=== PATIENT | male | born 1960 | race Caucasian/White ===

== ENCOUNTER 2016-03-23 07:14 | Emergency (ER) | payer OTHER ==
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
[2016-03-23 08:25] LABS: ABSOLUTE BASOPHILS # (AUTO) 0.1 10^3/uL (0.0-0.2); ABSOLUTE EOSINOPHILS # (AUTO) 0.4 10^3/uL (0.0-0.6); ABSOLUTE LYMPHOCYTES (AUTO) 1.8 10^3/uL (0.5-4.7); ABSOLUTE MONOCYTES (AUTO) 0.8 10^3/uL (0.1-1.4); ABSOLUTE NEUT (AUTO) 5.8 10^3/uL (1.7-8.2); BASOPHILS % (AUTO) 1.2 % (0-2); HEMATOCRIT 44.5 % (37.9-51.0); HEMOGLOBIN 14.6 g/dL (13.5-17.0); HGB HCT DIFFERENCE -0.7; LYMPHOCYTES % (AUTO) 20.1 % (13-45); MEAN CORPUSCULAR HEMOGLOBIN 32.1 pg (27.0-33.4); MEAN CORPUSCULAR HGB CONC 32.8 g/dL (32.0-36.0); MEAN CORPUSCULAR VOLUME 98 fl (80-97); MONOCYTES % (AUTO) 9.6 % (3-13); RED BLOOD COUNT 4.54 10^6/uL (4.35-5.55); RED CELL DISTRIBUTION WIDTH 13.8 % (11.5-14.0); SEGMENTED NEUTROPHILS % (AUTO) 65.1 % (42-78); WHITE BLOOD COUNT 8.9 10^3/uL (4.0-10.5)
[2016-03-23 08:33] LABS: PROTHROMBIN TIME 12.2 SEC (11.4-15.4)
[2016-03-23 08:34] LABS: PARTIAL THROMBOPLASTIN TIME 30.3 SEC (23.5-35.8)
[2016-03-23 08:48] LABS: ALANINE AMINOTRANSFERASE 25 U/L (21-72); ALBUMIN 3.9 g/dL (3.5-5.0); ALKALINE PHOSPHATASE 72 U/L (38-126); ANION GAP 11 (5-19); ASPARTATE AMINO TRANSFERASE 31 U/L (17-59); BILIRUBIN,TOTAL 0.4 mg/dL (0.2-1.3); BLOOD UREA NITROGEN 16 mg/dL (7-20); CALCIUM 9.1 mg/dL (8.4-10.2); CARBON DIOXIDE 25 mmol/L (22-30); CHLORIDE 106 mmol/L (98-107); CREATININE RESULT 1.02 mg/dL (0.52-1.25); GLUCOSE 105 mg/dL (75-110); LIPASE 91.3 U/L (23-300); POTASSIUM 3.9 mmol/L (3.6-5.0)
[2016-03-23 10:34] VITALS: BP 155/88
== END 2016-03-23 10:34 | disposition home or self-care (01) ==
LOC: ER 07:14
DX: K57.31 Diverticulosis of large intestine without perforation or abscess with bleeding (principal); K62.5 Hemorrhage of anus and rectum; R11.2 Nausea with vomiting, unspecified; R10.13 Epigastric pain; R42 Dizziness and giddiness; F17.210 Nicotine dependence, cigarettes, uncomplicated; I10 Essential (primary) hypertension; K21.9 Gastro-esophageal reflux disease without esophagitis; Z90.49 Acquired absence of other specified parts of digestive tract
CPT/HCPCS: 36415; 74177; 80053; 82272; 83690; 85025; 85610; 85730; 86850; 86900; 86901; 99284

== ENCOUNTER 2017-04-21 10:30 | Emergency (ER) | payer OTHER ==
[2017-04-21 10:37] VITALS: BP 162/88
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
== END 2017-04-21 11:13 | disposition home or self-care (01) ==
LOC: ER 10:30
DX: K43.9 Ventral hernia without obstruction or gangrene (principal); I10 Essential (primary) hypertension; Z79.899 Other long term (current) drug therapy; Z87.892 Personal history of anaphylaxis; Z91.038 Other insect allergy status; J45.909 Unspecified asthma, uncomplicated
CPT/HCPCS: 99283

== ENCOUNTER 2017-11-21 11:23 | Emergency (ER) | payer OTHER ==
[2017-11-21 12:28] VITALS: BP 122/66
[2017-11-21] MEDS ORDERED: HYDROCODONE/ACETAMINOPHEN 5-325 MG (6 TAB/ER DISP) PO PRN (13:06)
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
== END 2017-11-21 13:16 | disposition home or self-care (01) ==
LOC: ER 11:23
DX: S53.402A Unspecified sprain of left elbow, initial encounter (principal); X50.0XXA Overexertion from strenuous movement or load, initial encounter; F17.200 Nicotine dependence, unspecified, uncomplicated
CPT/HCPCS: 99283

== ENCOUNTER 2018-08-08 10:13 | Emergency (ER) | payer OTHER ==
--- NOTE | 2018-08-08 10:30 | ER Document Report ---
ED Medical Screen (RME) - General Chief Complaint: Testicular Pain Stated Complaint: LOW LEFT ABDOMINAL PAIN Time Seen by Provider: 08/08/18 10:25 Mode of Arrival: Ambulatory Information source: Patient Notes: Patient presents emergency department with complaints of left lower quad abdominal pain since Tuesday. Also complains of left testicular pain from 2 days ago. Has history of diverticulitis. Denies other symptoms such as fever vomiting diarrhea. Reports urinary frequency. Dictation of this chart was performed using voice recognition software; therefore, there may be some unintended grammatical errors. I have greeted and performed a rapid initial assessment of this patient. A comprehensive ED assessment and evaluation of the patient, analysis of test results and completion of the medical decision making process will be conducted by additional ED providers. TRAVEL OUTSIDE OF THE [place] IN LAST 30 DAYS: No - Related Data Allergies/Adverse Reactions: No Known Drug Allergies Allergy (Unknown, Verified 08/08/18 10:21) wasp Allergy (Severe, Uncoded 08/08/18 10:21) Anaphylaxis Past Medical History - Social History Family history: None - Past Medical History Cardiac Medical History: Reports: Hx Hypertension Pulmonary Medical History: Reports: Hx Asthma Denies: Hx Tuberculosis Renal/ Medical History: Denies: Hx Peritoneal Dialysis GI Medical History: Reports: Hx Gastroesophageal Reflux Disease Traumatic Medical History: Reports: Hx Fractures - ankles Past Surgical History: Reports: Hx Cholecystectomy. Denies: Hx Pacemaker - Immunizations Hx Diphtheria, Pertussis, Tetanus Vaccination: Yes Physical Exam - Vital signs Vitals: Temp Pulse Resp BP Pulse Ox 97.9 F 71 18 113/64 95 08/08/18 10:23 08/08/18 10:08/08/18 10:08/08/18 10:23 08/08/18 10:23 Course - Vital Signs Vital signs: Temp Pulse Resp BP Pulse Ox 97.9 F 71 18 113/64 95 08/08/18 10:23 08/08/18 10:23 08/08/18 10:23 08/08/18 10:23 08/08/18 10:23
[2018-08-08 10:58] LABS: ABSOLUTE BASOPHILS # (AUTO) 0.1 10^3/uL (0.0-0.2); ABSOLUTE EOSINOPHILS # (AUTO) 0.3 10^3/uL (0.0-0.6); ABSOLUTE LYMPHOCYTES (AUTO) 2.2 10^3/uL (0.5-4.7); ABSOLUTE MONOCYTES (AUTO) 0.8 10^3/uL (0.1-1.4); ABSOLUTE NEUT (AUTO) 5.2 10^3/uL (1.7-8.2); BASOPHILS % (AUTO) 0.8 % (0-2); EOSINOPHILS % (AUTO) 3.1 % (0-6); HEMATOCRIT 39.7 % (37.9-51.0); LYMPHOCYTES % (AUTO) 25.7 % (13-45); MEAN CORPUSCULAR HEMOGLOBIN 33.4 pg (27.0-33.4); MEAN CORPUSCULAR HGB CONC 35.3 g/dL (32.0-36.0); MEAN CORPUSCULAR VOLUME 94 fl (80-97); MONOCYTES % (AUTO) 9.8 % (3-13); PLATELET COUNT 269 10^3/uL (150-450); RED BLOOD COUNT 4.21 10^6/uL (4.35-5.55); SEGMENTED NEUTROPHILS % (AUTO) 60.6 % (42-78); TOTAL CELLS COUNTED % (AUTO) 100 %; WHITE BLOOD COUNT 8.6 10^3/uL (4.0-10.5)
[2018-08-08 11:00] LABS: APPEARANCE,URINE CLEAR; BILIRUBIN,URINE NEGATIVE (NEGATIVE); COLOR,URINE YELLOW; GLUCOSE, URINE NEGATIVE (NEGATIVE); KETONES,URINE NEGATIVE (NEGATIVE); LEUKOCYTE ESTERASE,URINE NEGATIVE (NEGATIVE); NITRITE,URINE NEGATIVE (NEGATIVE); PROTEIN,URINE NEGATIVE (NEGATIVE); URINE SPECIFIC GRAVITY 1.016; UROBILINOGEN,URINE NEGATIVE mg/dL (<2.0)
[2018-08-08 11:18] LABS: ALANINE AMINOTRANSFERASE 19 U/L (21-72); ALBUMIN 4.1 g/dL (3.5-5.0); ALKALINE PHOSPHATASE 63 U/L (38-126); ANION GAP 10 (5-19); ASPARTATE AMINO TRANSFERASE 22 U/L (17-59); BILIRUBIN,DIRECT 0.2 mg/dL (0.0-0.4); BILIRUBIN,TOTAL 0.6 mg/dL (0.2-1.3); BLOOD UREA NITROGEN 25 mg/dL (7-20); CALCIUM 9.6 mg/dL (8.4-10.2); CARBON DIOXIDE 25 mmol/L (22-30); CHLORIDE 106 mmol/L (98-107); GLUCOSE 98 mg/dL (75-110); POTASSIUM 4.1 mmol/L (3.6-5.0); SODIUM 141.3 mmol/L (137-145); TOTAL PROTEIN 7.3 g/dL (6.3-8.2)
--- NOTE | 2018-08-08 11:51 | RADIOLOGY REPORT (SQ) ---
EXAM DESCRIPTION: U/S SCROTUM W/DOPPLER COMPLETED DATE/TIME: 08/08/2018 11:42 am REASON FOR STUDY: left testicular pain COMPARISON: None. TECHNIQUE: Static and realtime lopez scale imaging of the scrotum and testes. Selected color Doppler and spectral images recorded to document blood flow. LIMITATIONS: None. FINDINGS: RIGHT: TESTICLE: Normal size, 4 x 3.2 x 2.2 cm. Normal echotexture. Normal blood flow. No mass. EPIDIDYMIS: Normal, 10 mm. HYDROCELE OR VARICOCELE: No. HERNIA OR EXTRA-TESTICULAR MASS: No. OTHER: No other significant finding. LEFT: TESTICLE: Normal size, 4.2 x 3.4 x 2.1 cm. Normal echotexture. Normal blood flow. No mass. EPIDIDYMIS: Normal, 8 mm. HYDROCELE OR VARICOCELE: No. HERNIA OR EXTRA-TESTICULAR MASS: No. OTHER: No other significant finding. IMPRESSION: NORMAL SCROTAL ULTRASOUND. NO EVIDENCE OF TESTICULAR MASS OR TORSION. TECHNICAL DOCUMENTATION: JOB ID: [id number] [employer]- All Rights Reserved Reading location - IP/workstation name: [email or web address]
[2018-08-08] MEDS ORDERED: MORPHINE SULFATE 10 MG/ML INJ IV ONE (14:07)
[2018-08-08] MEDS ORDERED: ONDANSETRON HCL INJ/PF 4 MG/2 ML SDV IV ONE (14:07)
--- NOTE | 2018-08-08 14:39 | RADIOLOGY REPORT (SQ) ---
EXAM DESCRIPTION: CT ABD/PELVIS WITH IV ONLY COMPLETED DATE/TIME: 08/08/2018 2:30 pm REASON FOR STUDY: llq pain history of diverticulitis COMPARISON: 03/23/2016 TECHNIQUE: CT scan of the abdomen and pelvis performed using helical scanning technique with dynamic intravenous contrast injection. No oral contrast. Images reviewed with lung, soft tissue, and bone windows. Reconstructed coronal and sagittal MPR images reviewed. Delayed images for evaluation of the urinary system also acquired. All images stored on PACS. All CT scanners at this facility use dose modulation, iterative reconstruction, and/or weight based d osing when appropriate to reduce radiation dose to as low as reasonably achievable (ALARA). [facility]: Dose Right [facility]: CareDose [facility]: Dose Right [facility]: Teradose 4D [facility]: [employer] CONTRAST TYPE AND DOSE: contrast/concentration: Isovue 350.00 mg/ml; Total Contrast Delivered: 100.0 ml; Total Saline Delivered: 70.0 ml RENAL FUNCTION: GFR > 60. RADIATION DOSE: CT Rad equipment meets quality standard of care and radiation dose reduction techniq ues were employed. CTDIvol: NaN - NaN mGy. DLP: 0 mGy-cm.. LIMITATIONS: None. FINDINGS: LOWER CHEST: No significant findings. No nodules or infiltrates. LIVER: Normal size. No masses. No dilated ducts. SPLEEN: Old granulomatous disease. PANCREAS: No masses. No significant calcifications. No adjacent inflammation or peripancreatic fluid collections. Pancreatic duct not dilated. GALLBLADDER: Surgically absent. ADRENAL GLANDS: No significant masses or asymmetry. RIGHT KIDNEY AND URETER: No solid masses. No significant calcifications. No hydronephrosis or hyd roureter. LEFT KIDNEY AND URETER: No solid masses. No significant calcifications. No hydronephrosis or hydr oureter. AORTA AND VESSELS: No aneurysm. No dissection. Renal arteries, SMA, celiac without stenosis. RETROPERITONEUM: No retroperitoneal adenopathy, hemorrhage or masses. BOWEL AND PERITONEAL CAVITY: Mesenteric inflammation in the sigmoid colon. No abscess. No ascites o r free air. APPENDIX: Normal. PELVIS: No mass. No free fluid. Normal bladder. ABDOMINAL WALL: No masses. No hernias. BONES: No significant or acute findings. OTHER: No other significant finding. IMPRESSION: Sigmoid diverticulitis. TECHNICAL DOCUMENTATION: JOB ID: [id number] Quality ID # [id number]: Final reports with documentation of one or more dose reduction techniques (e.g., Au tomated exposure control, adjustment of the mA and/or kV according to patient size, use of iterative reconstruction technique) 2010 [employer]- All Rights Reserved Reading location - IP/workstation name: [email or web address]
[2018-08-08] MEDS ORDERED: METRONIDAZOLE 500 MG/NS RTU 500 MG/100 ML RTUPB IV ONE (15:08)
[2018-08-08] MEDS ORDERED: AMOXICILLIN TR/POT CLAVULANATE 500-125 MG TAB PO ONE (15:09)
[2018-08-08] MEDS ORDERED: DIPHENHYDRAMINE HCL 50 MG CAPSULE PO ONE (15:14)
--- NOTE | 2018-08-08 15:24 | ER Document Report ---
ED General - General Chief Complaint: Testicular Pain Stated Complaint: LOW LEFT ABDOMINAL PAIN Time Seen by Provider: 08/08/18 10:25 Mode of Arrival: Ambulatory Information source: Patient Notes: 58-year-old male with a history of hypertension, asthma, diverticulitis presents with left lower quadrant abdominal pain that started 5 days prior to arrival. Patient describes the pain as sharp, intermittent and worse with certain movements. He did try an old pain patch without relief. Patient denies any fever, chills, nausea, vomiting, diarrhea. His last bout of diverticulitis was approximately 1 year ago. Patient reports a colonoscopy 2 years ago. TRAVEL OUTSIDE OF THE [place] IN LAST 30 DAYS: No - HPI Onset: Last week Onset/Duration: Gradual, Persistent Quality of pain: Dull, Sharp Severity: Mild Pain Level: 1 Associated symptoms: denies: Chest pain, Diarrhea, Fever, Headache, Nausea, Vomiting, Weakness Exacerbated by: Movement Relieved by: Denies Similar symptoms previously: Yes Recently seen / treated by doctor: No - Related Data Allergies/Adverse Reactions: No Known Drug Allergies Allergy (Unknown, Verified 08/08/18 10:21) wasp Allergy (Severe, Uncoded 08/08/18 10:21) Anaphylaxis Past Medical History - General Information source: Patient - Social History Smoking Status: Current Every Day Smoker Cigarette use (# per day): Yes - 20 Smoking Education Provided: Yes - Smoking cessation counseling was provided for 4 minutes at the bedside Frequency of alcohol use: Occasional Drug Abuse: None Lives with: Family Family History: DM Patient has suicidal ideation: No Patient has homicidal ideation: No - Past Medical History Cardiac Medical History: Reports: Hx Hypertension Pulmonary Medical History: Reports: Hx Asthma Denies: Hx Tuberculosis Renal/ Medical History: Denies: Hx Peritoneal Dialysis GI Medical History: Reports: Hx Gastroesophageal Reflux Disease Traumatic Medical History: Reports: Hx Fractures - ankles Past Surgical History: Reports: Hx Cholecystectomy. Denies: Hx Pacemaker - Immunizations Hx Diphtheria, Pertussis, Tetanus Vaccination: Yes Review of Systems - Review of Systems Notes: REVIEW OF SYSTEMS: CONSTITUTIONAL : Denies fever, chills, or sweats. Denies recent illness. Denies weight loss, recent hospitalizations. EENT: Denies visual changes, eye pain. Denies sore throat, oral lesions, difficulty swallowing. CARDIOVASCULAR: Denies chest pain. Denies palpitations. Denies lower extremity edema. RESPIRATORY: Denies cough. Denies shortness of breath, wheezing. GASTROINTESTINAL: Denies abdominal distention. Denies nausea, vomiting, or diarrhea. Denies blood in vomitus, stools, or per rectum. Denies black, tarry stools. Denies constipation. GENITOURINARY: Denies difficulty urinating, painful urination, frequency, blood in urine, testicular pain or penile discharge. MUSCULOSKELETAL: Denies back or neck pain or stiffness. Denies joint pain or swelling. SKIN: Denies rash, lesions or sores. HEMATOLOGIC : Denies easy bruising or bleeding. LYMPHATIC: Denies swollen glands. NEUROLOGICAL: Denies confusion or altered mental status. Denies loss of consciousness. Denies dizziness or lightheadedness. Denies headache. Denies weakness or paralysis. Denies problems difficulty with ambulation, slurred speech. Denies sensory loss, numbness, or tingling. Denies seizures. PSYCHIATRIC: Denies anxiety or stress. Denies depression, suicidal ideation, or Physical Exam - Vital signs Vitals: Temp Pulse Resp BP Pulse Ox 97.9 F 71 18 113/64 95 08/08/18 10:23 08/08/18 10:23 08/08/18 10:23 08/08/18 10:23 08/08/18 10:23 - Notes Notes: PHYSICAL EXAMINATION: GENERAL: Well-appearing, well-nourished and in no acute distress. HEAD: Atraumatic, normocephalic. EYES: Pupils equal round and reactive to light, extraocular movements intact, sclera anicteric, conjunctiva are normal. ENT: Nares patent, oropharynx clear without exudates. Moist mucous membranes. NECK: Normal range of motion, supple without lymphadenopathy LUNGS: Breath sounds clear to auscultation bilaterally and equal. No wheezes rales or rhonchi. HEART: Regular rate and rhythm without murmurs ABDOMEN: Soft, tenderness with palpation to the left lower quadrant. No guarding, no rebound. No masses appreciated. Musculoskeletal: Normal range of motion, no pitting or edema. No cyanosis. NEUROLOGICAL: Cranial nerves grossly intact. Normal speech, normal gait. Normal sensory, motor exams PSYCH: Normal mood, normal affect. SKIN: Warm, Dry, normal turgor, no rashes or lesions noted. Course - Re-evaluation Re-evalutation: 08/08/18 15:24 Laboratory 08/08/18 08/08/18 08/08/18 10:35 10:35 10:35 WBC 8.6 RBC 4.21 L Hgb 14.0 Hct 39.7 MCV 94 MCH 33.4 MCHC 35.3 RDW 13.0 Plt Count 269 Seg Neutrophils % 60.6 Lymphocytes % 25.7 Monocytes % 9.8 Eosinophils % 3.1 Basophils % 0.8 Absolute Neutrophils 5.2 Absolute Lymphocytes 2.2 Absolute Monocytes 0.8 Absolute Eosinophils 0.3 Absolute Basophils 0.1 Sodium 141.3 Potassium 4.1 Chloride 106 Carbon Dioxide 25 Anion Gap 10 BUN 25 H Creatinine 1.14 Est GFR ( Amer) > 60 Est GFR (Non-Af Amer) > 60 Glucose 98 Calcium 9.6 Total Bilirubin 0.6 Direct Bilirubin 0.2 Neonat Total Bilirubin Not Reportable Neonat Direct Bilirubin Not Reportable Neonat Indirect Bili Not Reportable AST 22 ALT 19 L Alkaline Phosphatase 63 Total Protein 7.3 Albumin 4.1 Urine Color YELLOW Urine Appearance CLEAR Urine pH 5.0 Ur Specific [place] 1.016 Urine Protein NEGATIVE Urine Glucose (UA) NEGATIVE Urine Ketones NEGATIVE Urine Blood SMALL H Urine Nitrite NEGATIVE Urine Bilirubin NEGATIVE Urine Urobilinogen NEGATIVE Ur Leukocyte Esterase NEGATIVE Urine WBC (Auto) 2 Urine RBC (Auto) 1 U Hyaline Cast (Auto) 1 Urine Mucus (Auto) RARE Urine Ascorbic Acid NEGATIVE Scrotum Ultrasound 08/08/18 10:29 IMPRESSION: NORMAL SCROTAL ULTRASOUND. NO EVIDENCE OF TESTICULAR MASS OR TORSION. Abdomen/Pelvis CT 08/08/18 14:07 IMPRESSION: Sigmoid diverticulitis. Temp Pulse Resp BP Pulse Ox 97.9 F 71 18 113/64 95 08/08/18 10:23 08/08/18 10:23 08/08/18 10:23 08/08/18 10:23 08/08/18 10:23 08/08/18 15:24 58-year-old male presents with left lower quadrant abdominal pain that started 5 days prior to arrival. Vitals were reviewed and within normal limits. Patient does not appear toxic or dehydrated. He is in no acute distress. CBC is without leukocytosis or anemia. CMP shows no electrolyte abnormalities. Urinalysis is within normal limits. Scrotal ultrasound was obtained due to the patient's complaint of left testicular pain this showed no evidence of testicular mass or torsion. CT of the abdomen pelvis with IV contrast was obtained and showed sigmoid diverticulitis without associated abscess. Patient was given Flagyl, Augmentin. During patient's ED course he started to complain of left lower lip swelling. Patient does have minor swelling of the left lower lip without airway involvement, tongue swelling, shortness of breath, rash. Patient does take lisinopril for his hypertension and has been on this for several years. Benadryl was given and improvement of the lip swelling was noted. Patient will be discharged home with Flagyl, Augmentin, Zofran. 08/08/18 16:28 Patient reevaluated prior to discharge. Lip swelling still present but improved. This could be secondary to his lisinopril which the patient was advised to stop. He was advised to contact his primary care physician regarding possible alternative medication for his high blood pressure. Patient reports feeling great improvement in his abdominal pain. Patient was evaluated and treated as appropriate for the patient's presenting symptoms and complaint, with consideration of any critical or life threatening conditions that may be associated with their obtained history and exam as noted above. All results were discussed with patient. Patient provided the opportunity to ask questions, and express concerns. Patient was educated on treatments based on their presumed diagnosis as noted above. At this time we will discharge the patient with return precautions and follow-up recommendations. Verbal discharge instructions given a the bedside. Medication warnings reviewed. Patient is in agreement with this plan and has verbalized understanding of return precautions. After careful consideration I feel that that patient can be safely discharged from the emergency department, they were advised to followup with a primary care physician in 2-3 days. Dictation on this chart was performed using voice recognition software and may result in unintended grammatical, spelling, syntax or errors. - Vital Signs Vital signs: Temp Pulse Resp BP Pulse Ox 97.9 F 71 18 113/64 95 08/08/18 10:23 08/08/18 10:23 08/08/18 10:23 08/08/18 10:23 08/08/18 10:23 - Laboratory Result Diagrams: 08/08/18 10:35 08/08/18 10:35 Laboratory results interpreted by me: 08/08/18 08/08/18 08/08/18 10:35 10:35 10:35 RBC 4.21 L BUN 25 H ALT 19 L Urine Blood SMALL H - Diagnostic Test Radiology reviewed: Image reviewed, Reports reviewed Discharge - Discharge Clinical Impression: Lower lip swelling, Sigmoid diverticulitis Condition: Good Disposition: HOME, SELF-CARE Instructions: Acute Allergic Reaction to Drugs ([facility]), Diverticulitis ([facility]) Additional Instructions: You were seen today for focal pain in your left lower quadrant. Your labs, exam, and imaging suggest a diagnosis of diverticulitis. This is an inflammation of a part of your colon. You are being started on antibiotics to treat this infection and inflammation. Please take all of them as directed and complete them even if your symptoms resolve. Please follow-up with your primary care physician within the next 48 hours. Return to the emergency department immediately if you develop worsening pain, persistent vomiting, began having bloody stools, develop a fever of greater than 101F, or have any other symptoms that are concerning to you. Please discontinue your lisinopril as this could be the cause of your lip swelling. Please contact your primary care physician and let them know about the lip swelling. Prescriptions: Metronidazole [Flagyl 500 mg Tablet] 500 mg PO BID #14 tablet Moxifloxacin HCl [Avelox] 400 mg PO DAILY #7 tablet Ondansetron [Zofran Odt 4 mg Tablet] 1 - 2 tab PO Q4H PRN #15 tab.rapdis PRN Reason: For Nausea/Vomiting Oxycodone HCl/Acetaminophen [Percocet 5-325 mg Tablet] 1 - 2 tab PO Q6H PRN #10 tablet PRN Reason:
[2018-08-08] MEDS ORDERED: METHYLPREDNISOLONE INJ 125 MG/2 ML SDV IV ONE (15:32)
[2018-08-08] MEDS ORDERED: FAMOTIDINE INJ/PF 20 MG/2 ML SDV IV ONE (15:33)
[2018-08-08 16:34] VITALS: BP 145/75
== END 2018-08-08 16:33 | disposition home or self-care (01) ==
LOC: ER 10:13
DX: K57.32 Diverticulitis of large intestine without perforation or abscess without bleeding (principal); R22.0 Localized swelling, mass and lump, head; R10.32 Left lower quadrant pain; F17.210 Nicotine dependence, cigarettes, uncomplicated; I10 Essential (primary) hypertension; Z90.49 Acquired absence of other specified parts of digestive tract
CPT/HCPCS: 99406; 99284; 96375; 96365; 36415; 85025; 80053; 81001; 76870; 93976; 74177; J2930; J3490; J2270; J2405; S0028

== ENCOUNTER → 2019-03-09 | Outpatient (CLI) | payer OTHER ==
--- NOTE | 2019-03-09 14:38 | RADIOLOGY REPORT (SQ) ---
EXAM DESCRIPTION: CHEST PA/LATERAL COMPLETED DATE/TIME: 03/09/2019 2:14 pm REASON FOR STUDY: PRE-OP COMPARISON: 11/13/10. EXAM PARAMETERS: NUMBER OF VIEWS: two views TECHNIQUE: Digital Frontal and Lateral radiographic views of the chest acquired. RADIATION DOSE: NA LIMITATIONS: none FINDINGS: LUNGS AND PLEURA: No opacities, masses or pneumothorax. No pleural effusion. MEDIASTINUM AND HILAR STRUCTURES: No masses or contour abnormalities. HEART AND VASCULAR STRUCTURES: Heart normal size. No evidence for failure. BONES: No acute findings. HARDWARE: None in the chest. OTHER: No other significant finding. IMPRESSION: NO SIGNIFICANT RADIOGRAPHIC FINDING IN THE CHEST. TECHNICAL DOCUMENTATION: JOB ID: [id number] [employer]- All Rights Reserved Reading location - IP/workstation name: [email or web address]
[2019-03-09 15:02] LABS: ABSOLUTE BASOPHILS # (AUTO) 0.1 10^3/uL (0.0-0.2); ABSOLUTE EOSINOPHILS # (AUTO) 0.4 10^3/uL (0.0-0.6); ABSOLUTE MONOCYTES (AUTO) 0.8 10^3/uL (0.1-1.4); ABSOLUTE NEUT (AUTO) 3.9 10^3/uL (1.7-8.2); BASOPHILS % (AUTO) 1.3 % (0-2); EOSINOPHILS % (AUTO) 5.6 % (0-6); HEMOGLOBIN 14.5 g/dL (13.5-17.0); LYMPHOCYTES % (AUTO) 28.1 % (13-45); MEAN CORPUSCULAR HEMOGLOBIN 31.7 pg (27.0-33.4); MEAN CORPUSCULAR HGB CONC 35.2 g/dL (32.0-36.0); MEAN CORPUSCULAR VOLUME 90 fl (80-97); MONOCYTES % (AUTO) 10.7 % (3-13); PLATELET COUNT 295 10^3/uL (150-450); RED BLOOD COUNT 4.55 10^6/uL (4.35-5.55); RED CELL DISTRIBUTION WIDTH 12.9 % (11.5-14.0); SEGMENTED NEUTROPHILS % (AUTO) 54.3 % (42-78); TOTAL CELLS COUNTED % (AUTO) 100 %; WHITE BLOOD COUNT 7.2 10^3/uL (4.0-10.5)
[2019-03-09 15:06] LABS: APPEARANCE,URINE CLEAR; BILIRUBIN,URINE NEGATIVE (NEGATIVE); COLOR,URINE YELLOW; GLUCOSE, URINE NEGATIVE (NEGATIVE); KETONES,URINE NEGATIVE (NEGATIVE); LEUKOCYTE ESTERASE,URINE NEGATIVE (NEGATIVE); NITRITE,URINE NEGATIVE (NEGATIVE); PROTEIN,URINE NEGATIVE (NEGATIVE); URINE SPECIFIC GRAVITY 1.019; UROBILINOGEN,URINE NEGATIVE mg/dL (<2.0)
[2019-03-09 15:21] LABS: ANION GAP 13 (5-19); BLOOD UREA NITROGEN 18 mg/dL (7-20); CALCIUM 9.8 mg/dL (8.4-10.2); CARBON DIOXIDE 26 mmol/L (22-30); CHLORIDE 100 mmol/L (98-107); GLUCOSE 100 mg/dL (75-110)
--- NOTE | 2019-03-09 19:44 | EKG REPORT ---
SEVERITY:- ABNORMAL ECG - SINUS RHYTHM FIRST DEGREE AV BLOCK INCOMPLETE RBBB AND LAFB LEFT VENTRICULAR HYPERTROPHY ANTERIOR Q WAVES, POSSIBLY DUE TO LVH : Confirmed by: Margarito Cortes MD 09-Mar-2019 19:43:39
== END ==
LOC: OD 13:47
PROVIDERS: ATTEND Orthopaedic Surgery
DX: Z01.810 Encounter for preprocedural cardiovascular examination (principal); Z01.811 Encounter for preprocedural respiratory examination; Z01.812 Encounter for preprocedural laboratory examination; M17.11 Unilateral primary osteoarthritis, right knee; I10 Essential (primary) hypertension
CPT/HCPCS: 36415; 71046; 80048; 81001; 85025; 93005; 93010

== ENCOUNTER 2019-03-28 05:18 | Day surgery (SDC) | payer OTHER ==
[~2019-03-28 05:18] MED LIST: BUPIVACAINE INJ/PF LIPOSOME/PF 266 MG/20 ML SDV INJ PRN; CEFAZOLIN INJ 1 GM VIAL IV PRN; IBUPROFEN 800 MG in NORMAL SALINE 250 ML IV PRN; LACTATED RINGERS 1000 ML IV PRN; LIDOCAINE 0.5% INJ-PF (5 MG/ML) 50 ML SDV SUBCUT PRN; OXYCODONE HCL SR 10 MG TABLET PO PRN; PANTOPRAZOLE SODIUM 20 MG TABLET.DR PO PRN; VANCOMYCIN HCL 1,000 MG in DEXTROSE 5%-WATER 250 ML IV PRN
[2019-03-28] MEDS ORDERED: CEFAZOLIN 1 GM/D5W RTU 1 GM/50 ML RTUPB IV ONE (06:29)
[2019-03-28] MEDS ORDERED: OXYCODONE HCL SR 10 MG TABLET PO ONE (06:58)
[2019-03-28] MEDS ORDERED: PANTOPRAZOLE SODIUM 20 MG TABLET.DR PO ONE (06:59)
[2019-03-28] MEDS ORDERED: ALBUTEROL SULFATE 0.083% NEB 2.5 MG/3 ML AMPUL NEB ONE (07:00)
[2019-03-28] MEDS ORDERED: FENTANYL CITRATE INJ/PF 100 MCG/2 ML AMPUL ONE (07:13)
[2019-03-28] MEDS ORDERED: KETAMINE HCL INJ 500 MG/10 ML VIAL ONE (07:13)
[2019-03-28] MEDS ORDERED: EPHEDRINE SULFATE INJ 50 MG/1 ML AMPULE ONE (07:13)
[2019-03-28] MEDS ORDERED: MIDAZOLAM 2 MG/2 ML INJ ONE (07:13)
[2019-03-28] MEDS ORDERED: TRANEXAMIC ACID INJ/PF 1,000 MG/10 ML SDV ONE (07:14)
[2019-03-28] MEDS ORDERED: PROPOFOL INJ 200 MG/20 ML VIAL IV ONE (07:14)
[2019-03-28] MEDS ORDERED: BUPIVACAINE INJ/PF LIPOSOME/PF 266 MG/20 ML SDV ONE (07:15)
[2019-03-28] MEDS ORDERED: OXYCODONE-ACETAMINOPHEN 5-325 MG TABLET PO PRN ×2 (07:51)
[2019-03-28] MEDS ORDERED: PROMETHAZINE HCL INJ 25 MG/1 ML VIAL IV PRN ×2 (07:51)
[2019-03-28] MEDS ORDERED: FENTANYL CITRATE INJ/PF 100 MCG/2 ML AMPUL IV PRN ×3 (07:51)
[2019-03-28] MEDS ORDERED: MEPERIDINE HCL/PF INJ 25 MG/1 ML DISP.SYRIN IV PRN (07:51)
[2019-03-28] MEDS ORDERED: DIPHENHYDRAMINE HCL 50 MG/ML VIAL IV PRN ×2 (07:51→08:35)
[2019-03-28] MEDS ORDERED: MAG HYDROX/AL HYDROX/SIMETH SUSP 30 ML UDCUP PO PRN (08:35)
[2019-03-28] MEDS ORDERED: ONDANSETRON HCL INJ/PF 4 MG/2 ML SDV IV PRN (08:35)
[2019-03-28] MEDS ORDERED: ACETAMINOPHEN 325 MG TABLET PO PRN (08:35)
[2019-03-28] MEDS ORDERED: OXYCODONE HCL IR 5 MG TABLET PO PRN (08:35)
[2019-03-28] MEDS ORDERED: RINGERS SOLUTION,LACTATED 1,000 ML IV PRN (08:35)
[2019-03-28] MEDS ORDERED: ZOLPIDEM TARTRATE 5 MG TABLET PO PRN (08:35)
[2019-03-28] MEDS ORDERED: ONDANSETRON 4 MG TAB.RAPDIS PO PRN (08:35)
--- NOTE | 2019-03-28 08:39 | Operative Report ---
Operative Report DATE OF SURGERY: 03/28/19 PREOPERATIVE DIAGNOSIS: Right knee arthritis OPERATION: Right knee arthroplasty SURGEON: LUIS ALBERTO WHITESIDE ANESTHESIA: Spinal TISSUE REMOVED OR ALTERED: Bone to pathology ESTIMATED BLOOD LOSS: 50 PROCEDURE: Implants used: Femur: [place] triathlon size 6 uncemented CR femur Tibia: 6 uncemented tibia Tibial liner: 9 mm CS insert Patella: 38 mm uncemented patella Procedure with the patient supine on the operating table the right the limb is prepped and draped in a sterile fashion. The limb was elevated for exsanguination and the tourniquet inflated to 280 torr. A standard midline median parapatellar approach the knee is taken. Access is gained to the femoral canal through the intercondylar notch. Intramedullary alignment instrumentation used to resect 10 mm of distal femur in 5 of valgus. Sizing guide indicated a size 6 femur. Appropriate cutting jig is then used to fashion anterior posterior and chamfer cuts. A trial reduction femurs performed and this is judged to be adequate. Attention was next turned to the tibia. Using an extra medullary alignment system 9 millimeters was resected off the lateral tibial plateau. This is sized to a size 6 tibia. A trial reduction was now performed with a 6 femur and a 6 tibia using a 9 millimeters spacer. It is full extension and central patellofemoral tracking. The articular surface the patella was next resected using an oscillating saw. All trial implants were removed. Polymethylmethacrylate is mixed and used to cement the above implants in place. On adequate curing the cement excess cement was removed the tourniquet was deflated hemostasis obtained the wound is then closed in layers using interrupted Vicryl followed by christal. A sterile compressive dressing was applied and the patient returned to recovery room in satisfactory condition.
[2019-03-28] MEDS ORDERED: PROMETHAZINE HCL INJ 25 MG/1 ML VIAL ONE (09:24)
--- NOTE | 2019-03-28 09:28 | RADIOLOGY REPORT (SQ) ---
EXAM DESCRIPTION: KNEE RIGHT 2 VIEWS COMPLETED DATE/TIME: 03/28/2019 9:20 am REASON FOR STUDY: Post OP -Long Cassette in PACU M17.11 UNILATERAL PRIMARY OSTEOARTHRITIS, RIGHT KN EE COMPARISON: None. NUMBER OF VIEWS: Two view(s). TECHNIQUE: Digital radiographic images of the right knee post-procedure. LIMITATIONS: None. FINDINGS: BONES: No worrisome or unexpected findings post-procedure. DEVICE: Total knee arthroplasty SOFT TISSUES: No worrisome findings. Expected postoperative soft tissue changes. IMPRESSION: SATISFACTORY POSTOPERATIVE RIGHT KNEE. TECHNICAL DOCUMENTATION: JOB ID: [id number] [employer]- All Rights Reserved Reading location - IP/workstation name: [email or web address]
[2019-03-28] MEDS ORDERED: LEVOTHYROXINE SODIUM 0.025 MG TABLET PO SCH (10:00)
[2019-03-28] MEDS ORDERED: (PENDING PHARMACY ID) (Omeprazole [Prilosec 20 Mg Capsule] 20 MG) PO SCH (10:00)
[2019-03-28] MEDS ORDERED: TRANEXAMIC ACID INJ/PF 1,000 MG/10 ML SDV IV ONE (10:00)
[2019-03-28] MEDS ORDERED: (PENDING PHARMACY ID) (Bupropion Hcl [Bupropion Xl] 150 MG) PO SCH (10:00)
[2019-03-28] MEDS: ASPIRIN 81 MG TABLET, ENT COATED PO SCH (10:55)
[2019-03-28] MEDS: PRENATAL VITAMIN W DHA CAPSULE PO SCH (10:55)
[2019-03-28] MEDS: SENNOSIDES/DOCUSATE 8.6-50 MG 1 EACH TABLET PO SCH ×2 (10:56→17:16)
[2019-03-28] MEDS: PREGABALIN 75 MG CAPSULE PO SCH ×2 (10:56→17:16)
[2019-03-28] MEDS: HYDROCHLOROTHIAZIDE 25 MG TABLET PO SCH (10:56)
[2019-03-28] MEDS: BUPROPION HCL 75 MG TABLET PO SCH ×2 (13:54→21:10)
[2019-03-28] MEDS ORDERED: DEXAMETHASONE SOD PHOSPHATE INJ 4 MG/1 ML VIAL ONE (14:40)
[2019-03-28] MEDS ORDERED: ONDANSETRON HCL INJ/PF 4 MG/2 ML SDV ONE (14:40)
[2019-03-28] MEDS: IBUPROFEN 800 MG in NORMAL SALINE 250 ML IV SCH (17:16)
[2019-03-28] MEDS ORDERED: VANCOMYCIN HCL 1,000 MG in DEXTROSE 5%-WATER 250 ML IV ONE (20:35)
[2019-03-28] MEDS: OXYCODONE HCL SR 10 MG TABLET PO SCH (21:09)
[2019-03-29] MEDS: IBUPROFEN 800 MG in NORMAL SALINE 250 ML IV SCH ×2 (01:55→10:32)
[2019-03-29] MEDS ORDERED: LEVOTHYROXINE SODIUM 0.025 MG TABLET PO SCH (06:00)
[2019-03-29] MEDS ORDERED: PANTOPRAZOLE SODIUM 20 MG TABLET.DR PO SCH (06:00)
[2019-03-29] MEDS ORDERED: LEVOTHYROXINE SODIUM 0.1 MG TABLET PO SCH (06:00)
--- NOTE | 2019-03-29 06:58 | PDOC DISCHARGE SUMMARY ---
Impression - Admit/DC Date/PCP Admission Date/Primary Care Provider: 03/28/19 05:18 [facility] Discharge Date: 03/29/19 - Discharge Diagnosis (1) Arthritis of right knee Is this a current diagnosis for this admission?: Yes - Additional Information Resuscitation Status: Full Code Discharge Diet: Regular Discharge Activity: Balance Activity w/Rest, No tub bath Referrals: LUIS ALBERTO CUNNINGHAM MD [ACTIVE STAFF] - 04/10/19 1:30 pm Home Medications: Omeprazole [Prilosec] 20 mg PO DAILYP PRN 06/29/11 Bupropion HCl [Bupropion Xl] 150 mg PO DAILY 03/15/19 Cetirizine HCl [Zyrtec] 10 mg PO DAILY 03/15/19 Hydrochlorothiazide [Hydrodiuril 25 mg Tablet] 25 mg PO DAILY 03/15/19 Levothyroxine Sodium 0.125 mg PO Q6AM 03/28/19 History of Present Illiness History of Present Illness: KELY MARTINEZ is a 59 year old male 59-year-old white male with progressive right knee pain and functional disability second osteoarthritis. Patient is admitted for elective right knee arthroplasty. Hospital Course Hospital Course: Patient is admitted through the operating where he undergoes an uncomplicated right knee arthroplasty. Is returned to floor in satisfactory condition.. He ambulates 150 feet with physical therapy on the day of surgery. He is comfortable overnight and is alert oriented appropriate the following morning. Physical Exam Vital Signs: Temp Pulse Resp BP Pulse Ox 36.4 C 66 18 148/68 H 96 03/29/19 00:00 03/29/19 00:00 03/29/19 00:00 03/29/19 00:00 03/29/19 00:00 Intake & Output 03/27/19 03/28/19 03/29/19 06:59 06:59 06:59 Intake Total 0 5412 Output Total 3010 Balance 0 2402 Weight 106.59 kg 106.59 kg General appearance: PRESENT: no acute distress Head exam: PRESENT: normocephalic Respiratory exam: PRESENT: unlabored Cardiovascular exam: PRESENT: RRR Pulses: PRESENT: +1 pedal pulses bilateral GI/Abdominal exam: PRESENT: soft Rectal exam: PRESENT: deferred Musculoskeletal exam: PRESENT: other - Right lower extremity compressive dressing removed. The small amount of drainage at the upper end of the OpSite. This is subsequently changed. Wound is well approximated christal. There is no erythema or ongoing drainage. Minimal pedal edema. Distal neurovascular examination is intact. Neurological exam: PRESENT: alert, awake, oriented to person, oriented to place, oriented to time, oriented to situation. ABSENT: motor sensory deficit Psychiatric exam: PRESENT: appropriate affect, normal mood. ABSENT: homicidal ideation, suicidal ideation Skin exam: PRESENT: dry, intact, warm. ABSENT: cyanosis, rash Results Laboratory Results: Potassium 4.3 mmol/L (3.6-5.0) 03/28/19 06:18 Impressions: Knee X-Ray 03/28/19 08:37 IMPRESSION: SATISFACTORY POSTOPERATIVE RIGHT KNEE. Plan Plan of Treatment: Patient be discharged home on a weightbearing as tolerated basis with DME and home health services. Follow-up with Dr. Cunningham and [facility] for surgery in 2 weeks for staple removal. Stroke Is this a Stroke Patient?: No Stroke Pt being discharged on Anti-thrombolytic therapy?: Yes Acute Heart Failure - Is this a Heart Failure Patient?: No
[2019-03-29 07:01] LABS: HEMATOCRIT 40.3 % (37.9-51.0); HEMOGLOBIN 13.9 g/dL (13.5-17.0); MEAN CORPUSCULAR HEMOGLOBIN 31.3 pg (27.0-33.4); MEAN CORPUSCULAR HGB CONC 34.4 g/dL (32.0-36.0); MEAN CORPUSCULAR VOLUME 91 fl (80-97); PLATELET COUNT 277 10^3/uL (150-450); RED BLOOD COUNT 4.43 10^6/uL (4.35-5.55); WHITE BLOOD COUNT 14.1 10^3/uL (4.0-10.5)
[2019-03-29 07:27] LABS: ANION GAP 10 (5-19); BLOOD UREA NITROGEN 29 mg/dL (7-20); CALCIUM 9.4 mg/dL (8.4-10.2); CARBON DIOXIDE 28 mmol/L (22-30); CHLORIDE 102 mmol/L (98-107); GLUCOSE 98 mg/dL (75-110)
[2019-03-29] MEDS: PREGABALIN 75 MG CAPSULE PO SCH (10:32)
[2019-03-29] MEDS: HYDROCHLOROTHIAZIDE 25 MG TABLET PO SCH (10:33)
[2019-03-29] MEDS: SENNOSIDES/DOCUSATE 8.6-50 MG 1 EACH TABLET PO SCH (10:33)
[2019-03-29] MEDS: OXYCODONE HCL SR 10 MG TABLET PO SCH (10:33)
[2019-03-29] MEDS: ASPIRIN 81 MG TABLET, ENT COATED PO SCH (10:34)
[2019-03-29] MEDS: PRENATAL VITAMIN W DHA CAPSULE PO SCH (10:34)
[2019-03-29] MEDS: BUPROPION HCL 75 MG TABLET PO SCH (10:34)
[2019-03-29 12:37] VITALS: BP 166/72
== END 2019-03-29 13:55 | disposition home or self-care (01) ==
LOC: UNDOADMIN 05:18 → OROUT 05:18 → INOR 05:18 → EDSTATUS 07:30 → INOR 10:03 → 4S 10:03 → OROUT 03-29 13:55 → UNDODISIN 03-29 13:55
PROVIDERS: ATTEND Orthopaedic Surgery
DX: M17.11 Unilateral primary osteoarthritis, right knee (principal)
CPT/HCPCS: 36415 ×2; 84132; 85027; 80048; 88305 ×2; 88311; 73560; 94799; 97110 ×2; 97116 ×2; 97163; 97535 ×2; 97166; 01402; 27447; C1776 ×2; J2250; J0690; J1100; J3490 ×7; J3010; J2550; J2405; J7060; J7050; J2704; J3370; C9290; J1741

== ENCOUNTER 2019-04-22 00:07 | Inpatient (IN) | payer OTHER ==
[2019-04-22] MEDS ORDERED: OXYCODONE HCL IR 5 MG TABLET ONE (01:07)
[2019-04-22] MEDS: OXYCODONE HCL IR 5 MG TABLET PO PRN ×3 (08:31→23:59)
[2019-04-22] MEDS ORDERED: (PENDING PHARMACY ID) (Omeprazole [Prilosec 20 Mg Capsule] 20 MG) PO PRN (10:29)
[2019-04-22] MEDS ORDERED: BUPROPION HCL 75 MG TABLET PO ONE (11:30)
--- NOTE | 2019-04-22 11:31 | PDOC H&P ---
History of Present Illness Admission Date/PCP: 04/22/19 00:07 [facility] History of Present Illness: KELY MARTINEZ is a 59 year old male Patient is a 59-year-old white male status post right knee arthroplasty on March 28, 2019 who did well until approximately 48 hours ago when he had experienced increasing erythema warmth and discomfort about his right knee. He is chronicled this with a series of photographs on his phone. He denies any fever sweats chills or other systemic manifestations of infection. The patient presented initially to the [place] emergency room for reasons that are not clear to me and was transferred to [facility] under my care. Past Medical History Cardiac Medical History: Reports: Myocardial Infarction, Hypertension Denies: Atrial Fibrillation, Congestive Heart Failure, Coronary Artery Disease, Hyperlipidema, Peripheral Vascular Disease, Pulmonary Embolism, Heart Murmur Pulmonary Medical History: Reports: Asthma Denies: Bronchitis, Chronic Obstructive Pulmonary Disease (COPD), Pneumonia, Respiratory Failure, Sleep Apnea, Tuberculosis Neurological Medical History: Denies: Seizures Endocrine Medical History: Reports: Hyperthyroidism Denies: Hypothyroidism Malignancy Medical History: Denies: Lung Cancer GI Medical History: Reports: Gastroesophageal Reflux Disease Denies: Crohn's Disease, Hiatal Hernia Musculoskeltal Medical History: Reports: Arthritis Denies: Fibromyalgia Psychiatric Medical History: Denies: Bipolar Disorder, Depression, Post Traumatic Stress Disorder Hematology: Denies: Anemia Past Surgical History Past Surgical History: Reports: Cholecystectomy, Orthopedic Surgery - Right knee arthroplasty March 28, 2019 Denies: Appendectomy, Colostomy, Coronary Artery Bypass Graft, Gastric Bypass Surgery, Herniorrhaphy, Pacemaker, Tonsillectomy Social History Information Source: Patient, [facility]el[facility] Office, [facility] Records Smoking Status: Current Some Day Smoker Electronic Cigarette use?: No Number of Years Smokin Frequency of Alcohol Use: Rare Hx Recreational Drug Use: No Drugs: None Hx Prescription Drug Abuse: No Family History Family History: Reviewed & Not Pertinent, DM Parental Family History Reviewed: No Children Family History Reviewed: No Sibling(s) Family History Reviewed.: No Medication/Allergy Home Medications: Omeprazole [Prilosec] 20 mg PO DAILYP PRN 06/29/11 Bupropion HCl [Bupropion Xl] 150 mg PO DAILY 03/15/19 Cetirizine HCl [Zyrtec] 10 mg PO DAILY 03/15/19 Hydrochlorothiazide [Hydrodiuril 25 mg Tablet] 25 mg PO DAILY 03/15/19 Levothyroxine Sodium 0.125 mg PO Q6AM 03/28/19 Allergies/Adverse Reactions: No Known Drug Allergies Allergy (Unknown, Verified 03/28/19 05:33) wasp Allergy (Severe, Uncoded 03/28/19 05:30) Anaphylaxis Review of Systems All systems: as per [facility] Physical Exam Vital Signs: Temp Pulse Resp BP Pulse Ox 36.3 C 74 18 138/70 H 97 04/22/19 10:56 04/22/19 10:56 04/22/19 10:56 04/22/19 10:56 04/22/19 10:56 Intake & Output 04/21/19 04/22/19 04/23/19 06:59 06:59 06:59 Intake Total 400 Balance 400 Physical Exam: Moderately built middle-aged white male sitting up on the side of the bed. Patient is alert, oriented, and appropriate. Patient has some concern which is also appropriate. General appearance: PRESENT: mild distress, well-developed, well-nourished Head exam: PRESENT: normocephalic Respiratory exam: PRESENT: unlabored Cardiovascular exam: PRESENT: RRR Pulses: PRESENT: +1 pedal pulses bilateral Vascular exam: PRESENT: normal capillary refill GI/Abdominal exam: PRESENT: soft Rectal exam: PRESENT: deferred Extremities exam: PRESENT: other - Right knee incision is well approximated and completely re-epithelialized at this point. There is elevation, induration, and erythema. There is no active drainage. There is tenderness along incision primarily inferior to the patella. Neurological exam: PRESENT: alert, awake, oriented to person, oriented to place, oriented to time, oriented to situation. ABSENT: motor sensory deficit Psychiatric exam: PRESENT: appropriate affect, normal mood. ABSENT: homicidal ideation, suicidal ideation Skin exam: PRESENT: dry, intact, warm. ABSENT: cyanosis, rash Results Status: Imported from PACS Assessment & Plan - Diagnosis (1) Surgical site infection Is this a current diagnosis for this admission?: Yes Plan: Suspect the patient has a surgical site infection approximately 3-1/2 weeks status post right knee arthroplasty. An aspiration is performed in the room today with scant serosanguineous aspirate that is sent to microbiology for culture and sensitivity. The patient started empirically on Rocephin and vancomycin. Laboratory values are drawn today. Anticipate I&D tomorrow - Time Time Spent: 50 to 70 Minutes Anticipated discharge: Home with Homehealth Within: Other
[2019-04-22] MEDS: LEVOTHYROXINE SODIUM 0.025 MG TABLET PO SCH (11:53)
[2019-04-22] MEDS: PANTOPRAZOLE SODIUM 20 MG TABLET.DR PO SCH (11:54)
[2019-04-22] MEDS: LEVOTHYROXINE SODIUM 0.1 MG TABLET PO SCH (11:54)
[2019-04-22] MEDS ORDERED: HYDROCHLOROTHIAZIDE 25 MG TABLET PO ONE (12:00)
[2019-04-22] MEDS ORDERED: CETIRIZINE 10 MG TABLET PO ONE (12:00)
[2019-04-22 12:37] LABS: INTERNATIONAL RATION (INR) 1.11; PROTHROMBIN TIME 14.3 SEC (11.4-15.4)
[2019-04-22 12:38] LABS: PARTIAL THROMBOPLASTIN TIME 37.7 SEC (23.5-35.8)
[2019-04-22 12:43] LABS: ABSOLUTE BASOPHILS # (AUTO) 0.1 10^3/uL (0.0-0.2); ABSOLUTE EOSINOPHILS # (AUTO) 0.4 10^3/uL (0.0-0.6); ABSOLUTE LYMPHOCYTES (AUTO) 1.8 10^3/uL (0.5-4.7); ABSOLUTE MONOCYTES (AUTO) 1.2 10^3/uL (0.1-1.4); ABSOLUTE NEUT (AUTO) 7.2 10^3/uL (1.7-8.2); BASOPHILS % (AUTO) 1.2 % (0-2); EOSINOPHILS % (AUTO) 3.4 % (0-6); HEMATOCRIT 39.1 % (37.9-51.0); HEMOGLOBIN 13.8 g/dL (13.5-17.0); LYMPHOCYTES % (AUTO) 17.1 % (13-45); MEAN CORPUSCULAR HGB CONC 35.2 g/dL (32.0-36.0); MEAN CORPUSCULAR VOLUME 91 fl (80-97); MONOCYTES % (AUTO) 10.9 % (3-13); PLATELET COUNT 495 10^3/uL (150-450); RED BLOOD COUNT 4.31 10^6/uL (4.35-5.55); RED CELL DISTRIBUTION WIDTH 12.4 % (11.5-14.0); SEGMENTED NEUTROPHILS % (AUTO) 67.4 % (42-78); TOTAL CELLS COUNTED % (AUTO) 100 %; WHITE BLOOD COUNT 10.6 10^3/uL (4.0-10.5)
[2019-04-22 12:51] LABS: ANION GAP 11 (5-19); BLOOD UREA NITROGEN 27 mg/dL (7-20); CALCIUM 9.6 mg/dL (8.4-10.2); CARBON DIOXIDE 27 mmol/L (22-30); CHLORIDE 97 mmol/L (98-107); GLUCOSE 82 mg/dL (75-110); POTASSIUM 4.4 mmol/L (3.6-5.0)
[2019-04-22 13:10] LABS: C-REACTIVE PROTEIN 247.2 mg/L (<10.0)
[2019-04-22 13:25] LABS: ERYTHROCYTE SEDIMENTATION RATE 98 mm/hr (0-20)
[2019-04-22] MEDS: CEFTRIAXONE 2 GM/D5W RTU 2 GM/50 ML RTUPB IV SCH (13:51)
[2019-04-22] MEDS: RINGERS SOLUTION,LACTATED 1,000 ML IV PRN ×2 (14:04→22:59)
[2019-04-22] MEDS: BUPROPION HCL 75 MG TABLET PO SCH (17:36)
[2019-04-22] MEDS: VANCOMYCIN HCL 1,500 MG in DEXTROSE 5%-WATER 250 ML IV SCH (17:37)
[2019-04-23] MEDS: VANCOMYCIN HCL 1,500 MG in DEXTROSE 5%-WATER 250 ML IV SCH ×2 (05:00→18:10)
[2019-04-23] MEDS: LEVOTHYROXINE SODIUM 0.1 MG TABLET PO SCH (05:02)
[2019-04-23] MEDS: LEVOTHYROXINE SODIUM 0.025 MG TABLET PO SCH (05:02)
[2019-04-23] MEDS ORDERED: LEVOTHYROXINE SODIUM 0.125 MG PO SCH (06:00)
[2019-04-23] MEDS: HYDROCHLOROTHIAZIDE 25 MG TABLET PO SCH (09:04)
[2019-04-23] MEDS: CETIRIZINE 10 MG TABLET PO SCH (09:04)
[2019-04-23] MEDS: PANTOPRAZOLE SODIUM 20 MG TABLET.DR PO SCH (09:04)
[2019-04-23] MEDS: BUPROPION HCL 75 MG TABLET PO SCH ×2 (09:04→18:10)
[2019-04-23] MEDS ORDERED: (PENDING PHARMACY ID) (Cetirizine Hcl [Zyrtec] 10 MG) PO SCH (10:00)
[2019-04-23] MEDS ORDERED: VANCOMYCIN HCL INJ 1000 MG VIAL IV SCH (10:00)
[2019-04-23] MEDS ORDERED: (PENDING PHARMACY ID) (Bupropion Hcl [Bupropion Xl] 150 MG) PO SCH (10:00)
[2019-04-23] MEDS ORDERED: CEFTRIAXONE INJ 1000 MG VIAL IV SCH (10:00)
[2019-04-23] MEDS: CEFTRIAXONE 2 GM/D5W RTU 2 GM/50 ML RTUPB IV SCH (12:23)
[2019-04-23] MEDS: RINGERS SOLUTION,LACTATED 1,000 ML IV PRN ×2 (12:23→22:06)
[2019-04-23] MEDS: OXYCODONE HCL IR 5 MG TABLET PO PRN (12:25)
[2019-04-23] MEDS ORDERED: DEXAMETHASONE SOD PHOSPHATE INJ 4 MG/1 ML VIAL ONE (16:59)
[2019-04-23] MEDS ORDERED: MIDAZOLAM 2 MG/2 ML INJ ONE ×2 (16:59→17:07)
[2019-04-23] MEDS ORDERED: FENTANYL CITRATE INJ/PF 100 MCG/2 ML AMPUL ONE (16:59)
[2019-04-23] MEDS ORDERED: PROPOFOL 0 MG/0 ML INFUS..BTL IV ONE (17:00)
[2019-04-23] MEDS ORDERED: ONDANSETRON HCL INJ/PF 4 MG/2 ML SDV ONE (17:00)
[2019-04-23] MEDS ORDERED: PROPOFOL INJ 200 MG/20 ML VIAL IV ONE (17:02)
[2019-04-23] MEDS ORDERED: POLYMYXIN B SULFATE INJ 500000 UNIT VIAL ONE (17:13)
[2019-04-23] MEDS ORDERED: BACITRACIN INJ 50,000 UNIT VIAL ONE (17:14)
[2019-04-23] MEDS ORDERED: BUPIVACAINE INJ/PF LIPOSOME/PF 266 MG/20 ML SDV ONE (17:14)
[2019-04-23] MEDS ORDERED: MORPHINE SULFATE 10 MG/ML INJ IV PRN (17:56)
[2019-04-23] MEDS ORDERED: PROMETHAZINE HCL INJ 25 MG/1 ML VIAL IV PRN ×2 (17:56)
[2019-04-23] MEDS ORDERED: ONDANSETRON HCL INJ/PF 4 MG/2 ML SDV IV PRN (17:56)
[2019-04-23] MEDS ORDERED: MEPERIDINE HCL/PF INJ 25 MG/1 ML DISP.SYRIN IV PRN (17:56)
[2019-04-23] MEDS ORDERED: FENTANYL CITRATE INJ/PF 100 MCG/2 ML AMPUL IV PRN ×3 (17:56)
[2019-04-23] MEDS ORDERED: DIPHENHYDRAMINE HCL 50 MG/ML VIAL IV PRN ×2 (17:56→18:27)
[2019-04-23] MEDS ORDERED: VANCOMYCIN HCL INJ 1000 MG VIAL ONE (18:00)
[2019-04-23] MEDS ORDERED: RINGERS SOLUTION,LACTATED 1,000 ML IV PRN (18:27)
[2019-04-23] MEDS ORDERED: MAG HYDROX/AL HYDROX/SIMETH SUSP 30 ML UDCUP PO PRN (18:27)
[2019-04-23] MEDS ORDERED: ONDANSETRON 4 MG TAB.RAPDIS PO PRN (18:27)
--- NOTE | 2019-04-23 18:27 | Operative Report ---
Operative Report DATE OF SURGERY: 04/23/19 PREOPERATIVE DIAGNOSIS: Surgical site infection right knee arthroplasty OPERATION: Irrigation debridement exchange of polyethylene component SURGEON: LUIS ALBERTO WHITESIDE ANESTHESIA: Spinal TISSUE REMOVED OR ALTERED: Cultures to microbiology. Implant to CSS ESTIMATED BLOOD LOSS: 100 INTRAOPERATIVE FINDINGS: Both superficial and deep to the retinaculum there is a modest amount of clearish yellow fluid with flocculent material within it PROCEDURE: With the patient on the operating table the right lower extremities prepped and draped in a sterile fashion. Limb is elevated for exsanguination tourniquet inflated 280 torr. A standard midline vision is made and upon penetrating the dermis there is a large amount of clear yellowish fluid with flocculent material in it. This is captured and sent for microbiology. The superficial area is debrided meticulously and irrigated with 3 L of normal saline tanning bacitracin. The deep layers and entered by a median parapatellar retinacular incision and similar fluid is found within the knee joint proper. The existing polyethylene spacer is removed for access to the largest amount of joint surface area. The synovium is debrided meticulously first by scraping and then with a rondure. The the wound is then irrigated with pulse lavage using normal saline containing Betadine. A new 9 mm size 6 CS insert for a [place] triathlon system is impacted into the tibial tray. The wound is then closed in layers was interrupted PDS. A sterile compressive dressings applied and the patient is returned to the PACU in satisfactory condition.
[2019-04-23] MEDS ORDERED: TRANEXAMIC ACID INJ/PF 1,000 MG/10 ML SDV ONE (19:36)
[2019-04-23] MEDS ORDERED: TRANEXAMIC ACID INJ/PF 1,000 MG/10 ML SDV IV ONE (20:00)
[2019-04-23] MEDS: OXYCODONE HCL SR 10 MG TABLET PO SCH (21:13)
[2019-04-23] MEDS: IBUPROFEN 800 MG in NORMAL SALINE 250 ML IV SCH (22:06)
[2019-04-24] MEDS: OXYCODONE HCL IR 5 MG TABLET PO PRN (03:28)
[2019-04-24] MEDS: PANTOPRAZOLE SODIUM 40 MG TABLET.DR PO SCH (05:12)
[2019-04-24] MEDS: IBUPROFEN 800 MG in NORMAL SALINE 250 ML IV SCH ×3 (05:12→21:24)
[2019-04-24] MEDS: LEVOTHYROXINE SODIUM 0.025 MG TABLET PO SCH (05:12)
[2019-04-24] MEDS: LEVOTHYROXINE SODIUM 0.1 MG TABLET PO SCH (05:12)
[2019-04-24] MEDS: VANCOMYCIN HCL 1,500 MG in DEXTROSE 5%-WATER 250 ML IV SCH (05:38)
[2019-04-24 06:08] LABS: HEMATOCRIT 33.7 % (37.9-51.0); HEMOGLOBIN 11.9 g/dL (13.5-17.0); MEAN CORPUSCULAR HEMOGLOBIN 31.7 pg (27.0-33.4); MEAN CORPUSCULAR HGB CONC 35.2 g/dL (32.0-36.0); MEAN CORPUSCULAR VOLUME 90 fl (80-97); PLATELET COUNT 444 10^3/uL (150-450); RED BLOOD COUNT 3.74 10^6/uL (4.35-5.55); RED CELL DISTRIBUTION WIDTH 12.4 % (11.5-14.0)
[2019-04-24] MEDS ORDERED: VANCOMYCIN HCL 1,000 MG in DEXTROSE 5%-WATER 250 ML IV ONE (06:27)
[2019-04-24 06:41] LABS: VANCOMYCIN,TROUGH 6.4 ug/mL (5.0-20.0)
[2019-04-24 07:13] LABS: ANION GAP 7 (5-19); BLOOD UREA NITROGEN 15 mg/dL (7-20); CARBON DIOXIDE 27 mmol/L (22-30); CHLORIDE 99 mmol/L (98-107); GLUCOSE 96 mg/dL (75-110); POTASSIUM 4.5 mmol/L (3.6-5.0)
--- NOTE | 2019-04-24 07:24 | PDOC PROGRESS REPORT ---
Subjective Progress Note for:: 04/24/19 Reason For Visit: RIGHT KNEE PERIPROSTHETIC SURGICAL SITE INFECTION 59-year-old white male postop day 1 status post I&D of a right periprosthetic knee infection Physical Exam Vital Signs: Temp Pulse Resp BP Pulse Ox 37.1 C 82 16 152/64 H 98 04/24/19 01:00 04/24/19 01:00 04/24/19 01:00 04/24/19 01:00 04/24/19 01:00 Intake & Output 04/23/19 04/24/19 04/25/19 06:59 06:59 06:59 Intake Total 3378 2410 Output Total 40 Balance 3378 2370 Weight 108.454 kg 107.2 kg General appearance: PRESENT: mild distress Respiratory exam: PRESENT: unlabored Cardiovascular exam: PRESENT: RRR GI/Abdominal exam: PRESENT: soft Rectal exam: PRESENT: deferred Musculoskeletal exam: PRESENT: other - Right knee dressing clean dry and intact Neurological exam: PRESENT: alert, awake, oriented to person, oriented to place, oriented to time, oriented to situation. ABSENT: motor sensory deficit Psychiatric exam: PRESENT: appropriate affect, normal mood. ABSENT: homicidal ideation, suicidal ideation Skin exam: PRESENT: dry, intact, warm. ABSENT: cyanosis, rash Results Laboratory Results: 04/24/19 05:40 04/24/19 05:40 04/24/19 04/24/19 04/24/19 05:40 05:40 05:40 WBC 8.0 RBC 3.74 L Hgb 11.9 L Hct 33.7 L MCV 90 MCH 31.7 MCHC 35.2 RDW 12.4 Plt Count 444 Sodium 133.2 L Potassium 4.5 Chloride 99 Carbon Dioxide 27 Anion Gap 7 BUN 15 Creatinine 0.85 0.89 Est GFR ( Amer) > 60 > 60 Glucose 96 Calcium 9.0 Status: Imported from PACS Assessment & Plan - Diagnosis (1) Surgical site infection Is this a current diagnosis for this admission?: Yes Plan: Gram stain and culture data pending. Patient on empiric vancomycin and Rocephin. Will mobilize with physical therapy in the interim. - Time Time Spent with patient: 15-24 minutes Anticipated discharge: Home with Homehealth Within: Other
[2019-04-24] MEDS: PRENATAL VITAMIN W DHA CAPSULE PO SCH (09:04)
[2019-04-24] MEDS: CETIRIZINE 10 MG TABLET PO SCH (09:05)
[2019-04-24] MEDS: PANTOPRAZOLE SODIUM 20 MG TABLET.DR PO SCH (09:05)
[2019-04-24] MEDS: OXYCODONE HCL SR 10 MG TABLET PO SCH ×2 (09:05→21:23)
[2019-04-24] MEDS: SENNOSIDES/DOCUSATE 8.6-50 MG 1 EACH TABLET PO SCH ×2 (09:05→17:09)
[2019-04-24] MEDS: BUPROPION HCL 75 MG TABLET PO SCH ×2 (09:05→17:09)
[2019-04-24] MEDS: ASPIRIN 81 MG TABLET, ENT COATED PO SCH (09:05)
[2019-04-24] MEDS: HYDROCHLOROTHIAZIDE 25 MG TABLET PO SCH (09:05)
[2019-04-24] MEDS: CEFTRIAXONE 2 GM/D5W RTU 2 GM/50 ML RTUPB IV SCH (11:14)
[2019-04-24] MEDS: VANCOMYCIN HCL 1,000 MG in DEXTROSE 5%-WATER 250 ML IV SCH ×2 (13:34→21:23)
[2019-04-25] MEDS: IBUPROFEN 800 MG in NORMAL SALINE 250 ML IV SCH ×2 (05:17→13:00)
[2019-04-25] MEDS: PANTOPRAZOLE SODIUM 40 MG TABLET.DR PO SCH (05:17)
[2019-04-25] MEDS: LEVOTHYROXINE SODIUM 0.025 MG TABLET PO SCH (05:18)
[2019-04-25] MEDS: LEVOTHYROXINE SODIUM 0.1 MG TABLET PO SCH (05:18)
[2019-04-25 06:11] LABS: HEMATOCRIT 32.8 % (37.9-51.0); HEMOGLOBIN 11.4 g/dL (13.5-17.0); MEAN CORPUSCULAR HEMOGLOBIN 31.6 pg (27.0-33.4); MEAN CORPUSCULAR HGB CONC 34.8 g/dL (32.0-36.0); MEAN CORPUSCULAR VOLUME 91 fl (80-97); PLATELET COUNT 426 10^3/uL (150-450); RED CELL DISTRIBUTION WIDTH 12.5 % (11.5-14.0); WHITE BLOOD COUNT 7.2 10^3/uL (4.0-10.5)
--- NOTE | 2019-04-25 06:32 | PDOC PROGRESS REPORT ---
Subjective Progress Note for:: 04/25/19 Reason For Visit: RIGHT KNEE PERIPROSTHETIC SURGICAL SITE INFECTION 59-year-old white male now postop day 2 status post right knee I&D for periprosthetic infection. Patient made excellent progress with physical therapy yesterday. Having limited issues with pain at this point. Empiric antibiotics continue. Physical Exam Vital Signs: Temp Pulse Resp BP Pulse Ox 36.3 C 65 18 134/59 H 98 04/24/19 23:36 04/24/19 23:36 04/24/19 23:36 04/24/19 23:36 04/24/19 23:36 Intake & Output 04/23/19 04/24/19 04/25/19 06:59 06:59 06:59 Intake Total 3378 2410 3950 Output Total 40 300 Balance 3378 2370 3650 Weight 108.454 kg 107.2 kg 107.2 kg General appearance: PRESENT: no acute distress, mild distress Head exam: PRESENT: normocephalic Respiratory exam: PRESENT: unlabored Cardiovascular exam: PRESENT: RRR Pulses: PRESENT: +1 pedal pulses bilateral Vascular exam: PRESENT: normal capillary refill GI/Abdominal exam: PRESENT: soft Rectal exam: PRESENT: deferred Extremities exam: PRESENT: other - Right lower extremity dressing is taken down today. Wound is well approximated with sutures. There is some induration about the sutures but there is minimal erythema and no drainage. Neurological exam: PRESENT: alert, awake, oriented to person, oriented to place, oriented to time, oriented to situation. ABSENT: motor sensory deficit Psychiatric exam: PRESENT: appropriate affect, normal mood. ABSENT: homicidal ideation, suicidal ideation Skin exam: PRESENT: dry, intact, warm. ABSENT: cyanosis, rash Results Laboratory Results: 04/25/19 05:53 04/24/19 04/24/19 04/25/19 05:40 05:40 05:53 WBC 7.2 RBC 3.60 L Hgb 11.4 L Hct 32.8 L MCV 91 MCH 31.6 MCHC 34.8 RDW 12.5 Plt Count 426 Sodium 133.2 L Potassium 4.5 Chloride 99 Carbon Dioxide 27 Anion Gap 7 BUN 15 Creatinine 0.85 0.89 Est GFR ( Amer) > 60 > 60 Glucose 96 Calcium 9.0 04/22/19 11:16 Knee Fluid - Joint Gram Stain - Final 04/22/19 11:16 Knee Fluid - Joint Body Fluid Culture - Final No Aerobic Organisms Propionibacterium Species Status: Imported from PACS Assessment & Plan - Diagnosis (1) Surgical site infection Is this a current diagnosis for this admission?: Yes Plan: Awaiting culture results to tailor antibiotic therapy. - Time Time Spent with patient: 15-24 minutes Anticipated discharge: Home with Homehealth Within: Other
[2019-04-25 06:38] LABS: VANCOMYCIN,TROUGH 14.2 ug/mL (5.0-20.0)
[2019-04-25] MEDS: VANCOMYCIN HCL 1,000 MG in DEXTROSE 5%-WATER 250 ML IV SCH ×3 (06:42→21:55)
[2019-04-25] MEDS: PANTOPRAZOLE SODIUM 20 MG TABLET.DR PO SCH (08:11)
[2019-04-25] MEDS: OXYCODONE HCL IR 5 MG TABLET PO PRN (08:11)
[2019-04-25] MEDS: OXYCODONE HCL SR 10 MG TABLET PO SCH (09:48)
[2019-04-25] MEDS: HYDROCHLOROTHIAZIDE 25 MG TABLET PO SCH (09:50)
[2019-04-25] MEDS: CETIRIZINE 10 MG TABLET PO SCH (09:51)
[2019-04-25] MEDS: SENNOSIDES/DOCUSATE 8.6-50 MG 1 EACH TABLET PO SCH ×2 (09:51→17:08)
[2019-04-25] MEDS: ASPIRIN 81 MG TABLET, ENT COATED PO SCH (09:51)
[2019-04-25] MEDS: PRENATAL VITAMIN W DHA CAPSULE PO SCH (09:51)
[2019-04-25] MEDS: BUPROPION HCL 75 MG TABLET PO SCH ×2 (09:51→17:08)
[2019-04-25] MEDS: CEFTRIAXONE 2 GM/D5W RTU 2 GM/50 ML RTUPB IV SCH (12:00)
--- NOTE | 2019-04-25 15:55 | RADIOLOGY REPORT (SQ) ---
EXAM DESCRIPTION: PICC INSERTION; FLUORO/CV PLACEMENT; U/S GUIDE FOR VASCULAR ACCESS COMPLETED DATE/TIME: 04/25/2019 2:48 pm REASON FOR STUDY: CORRECTION ANTIBIOTICS; CORRECTION IV ABX; IV ACCESS COMPARISON: None. FLUOROSCOPY TIME: 0.11 seconds 2 images saved to PACS. TECHNIQUE: Fluoroscopic and ultrasound guided PICC placement. LIMITATIONS: None. PROCEDURE: After written consent and assessment were obtained, the patient was brought into the fluo roscopy room and placed supine on the table. Ultrasound evaluation of potential access sites were per formed. After successfully identifying a patent left basilic vein, the left arm was prepped and drape d in a sterile fashion along with the ultrasound probe. The entry site was anesthetized with 1% lidoc shirley. A 21 gauge 7 cm needle was advanced through the skin and into the basilic vein under live ultra sound guidance. An ultrasound image was saved to PACS confirming access site. A .018 guide wire was then inserted through the needle and into the venous system. The needle was then removed and an 11 b lade scalpel was used to make a 1cm skin incision. A 5 fr peel-away sheath was advanced over the wir e and into the venous system. A measurement was then made using the existing wire and live fluoroscop ic guidance. The wire was then removed and trimmed. The PICC was advanced through the peel-away sheat h and into the venous system. The peel-away sheath was removed and the catheter was adhered to the pa tients arm with a stat lock. The catheter was then aspirated and flushed and a sterile bandage was pl aced over the access site. A fluoroscopic spot image was saved to PACS confirming the catheter tip w ithin the superior vena cava. IMPRESSION: SUCCESSFUL PLACEMENT OF A 5 FR DUAL LUMEN 43 CM PICC IN THE LEFT BASILIC VEIN. COMMENT: Patient medication list reviewed: Yes- Quality ID# [id number]:Eligible professional attests to doc umenting in the medical record they obtained, updated, or reviewed the patient's current medications. . Quality ID 145: Final reports for procedures using fluoroscopy that document radiation exposure zack krystal, or exposure time and number of fluorographic images (if radiation exposure indices are not avail able) Quality ID #76: The patient was prepped and draped using maximum sterile barrier technique including cap, mask, sterile gown, sterile gloves, a large sterile sheet, hand hygiene, and 2% Chlorhexidine fo r cutaneous antisepsis. When ultrasound is used, sterile ultrasound techniques are followed requiring sterile gel and sterile probes. TECHNICAL DOCUMENTATION: JOB ID: [id number] 2010 [employer]- All Rights Reserved rev-07/22 Reading location - IP/workstation name: [email or web address]
--- NOTE | 2019-04-25 15:55 | RADIOLOGY REPORT (SQ) ---
EXAM DESCRIPTION: PICC INSERTION; FLUORO/CV PLACEMENT; U/S GUIDE FOR VASCULAR ACCESS COMPLETED DATE/TIME: 04/25/2019 2:48 pm REASON FOR STUDY: M[facility] ANTIBIOTICS; MCC IV ABX; IV ACCESS COMPARISON: None. FLUOROSCOPY TIME: 0.11 seconds 2 images saved to PACS. TECHNIQUE: Fluoroscopic and ultrasound guided PICC placement. LIMITATIONS: None. PROCEDURE: After written consent and assessment were obtained, the patient was brought into the fluo roscopy room and placed supine on the table. Ultrasound evaluation of potential access sites were per formed. After successfully identifying a patent left basilic vein, the left arm was prepped and drape d in a sterile fashion along with the ultrasound probe. The entry site was anesthetized with 1% lidoc shirley. A 21 gauge 7 cm needle was advanced through the skin and into the basilic vein under live ultra sound guidance. An ultrasound image was saved to PACS confirming access site. A .018 guide wire was then inserted through the needle and into the venous system. The needle was then removed and an 11 b lade scalpel was used to make a 1cm skin incision. A 5 fr peel-away sheath was advanced over the wir e and into the venous system. A measurement was then made using the existing wire and live fluoroscop ic guidance. The wire was then removed and trimmed. The PICC was advanced through the peel-away sheat h and into the venous system. The peel-away sheath was removed and the catheter was adhered to the pa tients arm with a stat lock. The catheter was then aspirated and flushed and a sterile bandage was pl aced over the access site. A fluoroscopic spot image was saved to PACS confirming the catheter tip w ithin the superior vena cava. IMPRESSION: SUCCESSFUL PLACEMENT OF A 5 FR DUAL LUMEN 43 CM PICC IN THE LEFT BASILIC VEIN. COMMENT: Patient medication list reviewed: Yes- Quality ID# [id number]:Eligible professional attests to doc umenting in the medical record they obtained, updated, or reviewed the patient's current medications. . Quality ID 145: Final reports for procedures using fluoroscopy that document radiation exposure zack krystal, or exposure time and number of fluorographic images (if radiation exposure indices are not avail able) Quality ID #76: The patient was prepped and draped using maximum sterile barrier technique including cap, mask, sterile gown, sterile gloves, a large sterile sheet, hand hygiene, and 2% Chlorhexidine fo r cutaneous antisepsis. When ultrasound is used, sterile ultrasound techniques are followed requiring sterile gel and sterile probes. TECHNICAL DOCUMENTATION: JOB ID: [id number] 2010 [employer]- All Rights Reserved rev-07/22 Reading location - IP/workstation name: [email or web address]
--- NOTE | 2019-04-25 15:55 | RADIOLOGY REPORT (SQ) ---
EXAM DESCRIPTION: PICC INSERTION; FLUORO/CV PLACEMENT; U/S GUIDE FOR VASCULAR ACCESS COMPLETED DATE/TIME: 04/25/2019 2:48 pm REASON FOR STUDY: GROUP HOME ANTIBIOTICS; GROUP HOME IV ABX; IV ACCESS COMPARISON: None. FLUOROSCOPY TIME: 0.11 seconds 2 images saved to PACS. TECHNIQUE: Fluoroscopic and ultrasound guided PICC placement. LIMITATIONS: None. PROCEDURE: After written consent and assessment were obtained, the patient was brought into the fluo roscopy room and placed supine on the table. Ultrasound evaluation of potential access sites were per formed. After successfully identifying a patent left basilic vein, the left arm was prepped and drape d in a sterile fashion along with the ultrasound probe. The entry site was anesthetized with 1% lidoc shirley. A 21 gauge 7 cm needle was advanced through the skin and into the basilic vein under live ultra sound guidance. An ultrasound image was saved to PACS confirming access site. A .018 guide wire was then inserted through the needle and into the venous system. The needle was then removed and an 11 b lade scalpel was used to make a 1cm skin incision. A 5 fr peel-away sheath was advanced over the wir e and into the venous system. A measurement was then made using the existing wire and live fluoroscop ic guidance. The wire was then removed and trimmed. The PICC was advanced through the peel-away sheat h and into the venous system. The peel-away sheath was removed and the catheter was adhered to the pa tients arm with a stat lock. The catheter was then aspirated and flushed and a sterile bandage was pl aced over the access site. A fluoroscopic spot image was saved to PACS confirming the catheter tip w ithin the superior vena cava. IMPRESSION: SUCCESSFUL PLACEMENT OF A 5 FR DUAL LUMEN 43 CM PICC IN THE LEFT BASILIC VEIN. COMMENT: Patient medication list reviewed: Yes- Quality ID# 130:Eligible professional attests to doc umenting in the medical record they obtained, updated, or reviewed the patient's current medications. . Quality ID 145: Final reports for procedures using fluoroscopy that document radiation exposure zack krystal, or exposure time and number of fluorographic images (if radiation exposure indices are not avail able) Quality ID #76: The patient was prepped and draped using maximum sterile barrier technique including cap, mask, sterile gown, sterile gloves, a large sterile sheet, hand hygiene, and 2% Chlorhexidine fo r cutaneous antisepsis. When ultrasound is used, sterile ultrasound techniques are followed requiring sterile gel and sterile probes. TECHNICAL DOCUMENTATION: JOB ID: [id number] 2010 [employer]- All Rights Reserved rev-07/22 Reading location - IP/workstation name: [email or web address]
[2019-04-25] MEDS: NORMAL SALINE 10 ML SDV (SCHEDULED) IV SCH (21:56)
[2019-04-26] MEDS: LEVOTHYROXINE SODIUM 0.025 MG TABLET PO SCH (06:17)
[2019-04-26] MEDS: PANTOPRAZOLE SODIUM 40 MG TABLET.DR PO SCH (06:17)
[2019-04-26] MEDS: OXYCODONE HCL IR 5 MG TABLET PO PRN ×3 (06:18→23:03)
[2019-04-26] MEDS: VANCOMYCIN HCL 1,000 MG in DEXTROSE 5%-WATER 250 ML IV SCH ×3 (06:18→21:19)
[2019-04-26] MEDS: LEVOTHYROXINE SODIUM 0.1 MG TABLET PO SCH (06:18)
[2019-04-26 06:53] LABS: HEMATOCRIT 33.6 % (37.9-51.0); HEMOGLOBIN 11.7 g/dL (13.5-17.0); MEAN CORPUSCULAR HEMOGLOBIN 31.6 pg (27.0-33.4); MEAN CORPUSCULAR HGB CONC 34.7 g/dL (32.0-36.0); MEAN CORPUSCULAR VOLUME 91 fl (80-97); PLATELET COUNT 453 10^3/uL (150-450); RED CELL DISTRIBUTION WIDTH 12.5 % (11.5-14.0); WHITE BLOOD COUNT 7.8 10^3/uL (4.0-10.5)
--- NOTE | 2019-04-26 07:05 | PDOC DISCHARGE SUMMARY ---
Impression - Admit/DC Date/PCP Admission Date/Primary Care Provider: 04/22/19 [facility] Discharge Date: 04/26/19 - Discharge Diagnosis (1) Surgical site infection Is this a current diagnosis for this admission?: Yes - Additional Information Resuscitation Status: Full Code Discharge Diet: Regular Discharge Activity: Activity As Tolerated, No tub bath Referrals: LUIS ALBERTO WHITESIDE MD [ACTIVE STAFF] - 05/03/19 1:00 pm Home Medications: Omeprazole [Prilosec] 20 mg PO DAILYP PRN 06/29/11 Bupropion HCl [Bupropion Xl] 150 mg PO DAILY 03/15/19 Cetirizine HCl [Zyrtec] 10 mg PO DAILY 03/15/19 Hydrochlorothiazide [Hydrodiuril 25 mg Tablet] 25 mg PO DAILY 03/15/19 Levothyroxine Sodium 0.125 mg PO Q6AM 03/28/19 History of Present Illiness History of Present Illness: Patient is a 59-year-old white male approximate 1 month status post right knee arthroplasty presented with increased erythema swelling and pain about the right knee. Patient is admitted for management of a suspected surgical site infection. Hospital Course Hospital Course: Patient was taken to the operating room and underwent an I&D of the knee. He was returned to floor in satisfactory she made excellent progress ambulating with physical therapy. Intraoperative cultures now growing gram-positive cocci with no further identification or antibiotic sensitivity available as of yet. He is started on empiric vancomycin and Rocephin. Physical Exam Vital Signs: Temp Pulse Resp BP Pulse Ox 36.5 C 76 18 152/55 H 99 04/26/19 00:00 04/26/19 00:00 04/26/19 00:00 04/26/19 00:00 04/26/19 00:00 Intake & Output 04/25/19 04/26/19 04/27/19 06:59 06:59 06:59 Intake Total 4200 2700 Output Total 300 Balance 3900 2700 Weight 107.2 kg 107.5 kg General appearance: PRESENT: well-developed, well-nourished Head exam: PRESENT: normocephalic Respiratory exam: PRESENT: unlabored Cardiovascular exam: PRESENT: RRR Pulses: PRESENT: +1 pedal pulses bilateral GI/Abdominal exam: PRESENT: soft Rectal exam: PRESENT: deferred Musculoskeletal exam: PRESENT: other - Right knee dressing with an OpSite remains clean dry and intact. There is small amount of erythema and induration about the knee itself. There is minimal pedal edema. Distal neurovascular examination is intact. Neurological exam: PRESENT: alert, awake, oriented to person, oriented to place, oriented to time, oriented to situation. ABSENT: motor sensory deficit Skin exam: PRESENT: dry, intact, warm. ABSENT: cyanosis, rash Results Laboratory Results: WBC 7.8 10^3/uL (4.0-10.5) 04/26/19 06:30 RBC 3.70 10^6/uL (4.35-5.55) L 04/26/19 06:30 Hgb 11.7 g/dL (13.5-17.0) L 04/26/19 06:30 Hct 33.6 % (37.9-51.0) L 04/26/19 06:30 MCV 91 fl (80-97) 04/26/19 06:30 MCH 31.6 pg (27.0-33.4) 04/26/19 06:30 MCHC 34.7 g/dL (32.0-36.0) 04/26/19 06:30 RDW 12.5 % (11.5-14.0) 04/26/19 06:30 Plt Count 453 10^3/uL (150-450) H 04/26/19 06:30 Lymph % (Auto) 17.1 % (13-45) 04/22/19 12:10 [place] % (Auto) 10.9 % (3-13) 04/22/19 12:10 Eos % (Auto) 3.4 % (0-6) 04/22/19 12:10 Baso % (Auto) 1.2 % (0-2) 04/22/19 12:10 Absolute Neuts (auto) 7.2 10^3/uL (1.7-8.2) 04/22/19 12:10 Absolute Lymphs (auto) 1.8 10^3/uL (0.5-4.7) 04/22/19 12:10 Absolute Monos (auto) 1.2 10^3/uL (0.1-1.4) 04/22/19 12:10 Absolute Eos (auto) 0.4 10^3/uL (0.0-0.6) 04/22/19 12:10 Absolute Basos (auto) 0.1 10^3/uL (0.0-0.2) 04/22/19 12:10 Seg Neutrophils % 67.4 % (42-78) 04/22/19 12:10 ESR 98 mm/hr (0-20) H 04/22/19 12:10 PT 14.3 SEC (11.4-15.4) 04/22/19 12:10 INR 1.11 04/22/19 12:10 APTT 37.7 SEC (23.5-35.8) H 04/22/19 12:10 Sodium 133.2 mmol/L (137-145) L 04/24/19 05:40 Potassium 4.5 mmol/L (3.6-5.0) 04/24/19 05:40 Chloride 99 mmol/L (98-107) 04/24/19 05:40 Carbon Dioxide 27 mmol/L (22-30) 04/24/19 05:40 Anion Gap 7 (5-19) 04/24/19 05:40 BUN 15 mg/dL (7-20) 04/24/19 05:40 Creatinine 0.97 mg/dL (0.52-1.25) 04/25/19 05:53 Est GFR ( Amer) > 60 (>60) 04/25/19 05:53 Est GFR (MDRD) Non-Af > 60 (>60) 04/25/19 05:53 Glucose 96 mg/dL (75-110) 04/24/19 05:40 Calcium 9.0 mg/dL (8.4-10.2) 04/24/19 05:40 C-Reactive Protein 247.2 mg/L (<10.0) H 04/22/19 12:10 Time Trough Drawn 0553 04/25/19 05:53 Vancomycin Trough 14.2 ug/mL (5.0-20.0) 04/25/19 05:53 Impressions: Guidance Fluoroscopy 04/25/19 00:00 IMPRESSION: SUCCESSFUL PLACEMENT OF A 5 FR DUAL LUMEN 43 CM PICC IN THE LEFT BASILIC VEIN. Interventional Vascular Procedure 04/25/19 00:00 IMPRESSION: SUCCESSFUL PLACEMENT OF A 5 FR DUAL LUMEN 43 CM PICC IN THE LEFT BASILIC VEIN. PICC Line Insertion 04/25/19 00:00 IMPRESSION: SUCCESSFUL PLACEMENT OF A 5 FR DUAL LUMEN 43 CM PICC IN THE LEFT BASILIC VEIN. Plan Plan of Treatment: Patient be discharged home with home health services in anticipation of 6 weeks of IV antibiotics administration. At this point the patient still receiving empiric vancomycin and Rocephin. Once culture results are finalized this may be able to be simplified. Follow-up with Dr. Whiteside and [facility] for surgery in 2 weeks for suture removal. Stroke Is this a Stroke Patient?: No Stroke Pt being discharged on Anti-thrombolytic therapy?: Yes Acute Heart Failure - Is this a Heart Failure Patient?: No
[2019-04-26] MEDS: CETIRIZINE 10 MG TABLET PO SCH (09:34)
[2019-04-26] MEDS: SENNOSIDES/DOCUSATE 8.6-50 MG 1 EACH TABLET PO SCH ×2 (09:34→17:10)
[2019-04-26] MEDS: PRENATAL VITAMIN W DHA CAPSULE PO SCH (09:34)
[2019-04-26] MEDS: HYDROCHLOROTHIAZIDE 25 MG TABLET PO SCH (09:35)
[2019-04-26] MEDS: ASPIRIN 81 MG TABLET, ENT COATED PO SCH (09:35)
[2019-04-26] MEDS: NORMAL SALINE 10 ML SDV (SCHEDULED) IV SCH ×2 (09:36→21:20)
[2019-04-26] MEDS: BUPROPION HCL 75 MG TABLET PO SCH ×2 (09:36→17:10)
[2019-04-26] MEDS: PANTOPRAZOLE SODIUM 20 MG TABLET.DR PO SCH (09:48)
[2019-04-26] MEDS: CEFTRIAXONE 2 GM/D5W RTU 2 GM/50 ML RTUPB IV SCH (11:43)
--- NOTE | 2019-04-26 18:46 | Progress Note ---
Provider Note Provider Note: ID Telephone/Remote Consultation Note Asked by Pharmacy to review patient's chart. Mr. Justin is a 59-year-old man who is s/p R knee arthroplasty on 03/28/2019 who exerpienced increasing erythema, warmth and discomfort about his right knee occuring starting 48h prior to presentation on 04/22/19 or about 3 and a half weeks after the TKR. On exam, pt was noted to have well healed incision, no drainage, tenderness along the incision, and induration and erythema about the R knee. Futher evaluation included aspiration of the knee joint that grew 1+ Propionibacterium species. ESR was 98. On 04/23, pt was taken to the OR for irrigation, debridement and exchange of the polyethylene component. Intraoperatively, clear yellowish fluid with flocculent material was encountered superficial and deep to the retinaculum. Four cultures from right knee tissue, some taken more superfically and some deep, have growth of 1+ Staphylococcus lugdunensis and no anaerobes. Like most Staphylococcus lugdunensis isolates, the patient's is methicillin- susceptible. From these cultures, no anaerobic organisms have been isolated. Empirically for the patient's periprosthetic joint infection, he has been receiving IV vancomycin and IV Rocephin and has had improvement in pain and erythema. The patient has had a PICC line placed. Impression Early onset R knee periprosthetic infection, s/p debridement and poly exhcange - Staph yarielgdunensis is a coagulase-negative Staph species that is more erick to Staph aureus in terms of pathogenicity but usually is susceptible to methicillin (90-95% of the time or more). His isolate is methicillin-susceptible as expected, and Rocephin would be effective and easier to administer as an outpatient. Vancomycin would only be needed if patient had a true allergy to beta-lactams. - The operative cultures yielded Staph lugdunensis in multiple cultures. Propionibacterium species was found in one specimen from joint aspiration. For both organisms, ceftriaxone is effective. Recommendations - Based on the susceptibility results for the Staphylococcus lugdunensis, continuing 2 grams IV Rocephin daily is appropriate. Recommend discontinuing IV vancomycin. Alonso Skelton MD [facility] pager [phone]
[2019-04-27] MEDS: VANCOMYCIN HCL 1,000 MG in DEXTROSE 5%-WATER 250 ML IV SCH (05:22)
[2019-04-27] MEDS: LEVOTHYROXINE SODIUM 0.025 MG TABLET PO SCH (05:22)
[2019-04-27] MEDS: OXYCODONE HCL IR 5 MG TABLET PO PRN ×2 (05:23→20:30)
[2019-04-27] MEDS: PANTOPRAZOLE SODIUM 40 MG TABLET.DR PO SCH (05:23)
[2019-04-27] MEDS: LEVOTHYROXINE SODIUM 0.1 MG TABLET PO SCH (05:29)
--- NOTE | 2019-04-27 06:58 | PDOC PROGRESS REPORT ---
Subjective Progress Note for:: 04/27/19 Reason For Visit: RIGHT KNEE PERIPROSTHETIC SURGICAL SITE INFECTION 59-year-old white male status post I&D of a right periprosthetic knee infection with an uneventful postoperative course. Intends to send the patient home yesterday were delayed because of setting up the home health services through the [place] system. Physical Exam Vital Signs: Temp Pulse Resp BP Pulse Ox 36.6 C 65 17 145/54 H 97 04/26/19 23:24 04/26/19 23:24 04/26/19 23:24 04/26/19 23:24 04/26/19 23:24 Intake & Output 04/25/19 04/26/19 04/27/19 06:59 06:59 06:59 Intake Total 4200 2700 1754 Output Total 300 Balance 3900 2700 1754 Weight 107.2 kg 107.5 kg 109.4 kg General appearance: PRESENT: no acute distress Respiratory exam: PRESENT: unlabored Cardiovascular exam: PRESENT: RRR Musculoskeletal exam: PRESENT: other - Right knee OpSite dressing clean dry and intact Results Laboratory Results: 04/26/19 06:30 04/25/19 05:53 04/26/19 06:30 WBC 7.8 RBC 3.70 L Hgb 11.7 L Hct 33.6 L MCV 91 MCH 31.6 MCHC 34.7 RDW 12.5 Plt Count 453 H 04/23/19 17:59 Knee - Post Surgical Site Gram Stain - Final 04/23/19 17:59 Knee - Post Surgical Site Wound Culture - Final Staphylococcus Lugdunensis No Anaerobic Organisms 04/23/19 17:59 Knee - Post Surgical Site Gram Stain - Final 04/23/19 17:59 Knee - Post Surgical Site Wound Culture - Final Staphylococcus Lugdunensis No Anaerobic Organisms 04/23/19 17:59 Knee - Post Surgical Site Gram Stain - Final 04/23/19 17:59 Knee - Post Surgical Site Wound Culture - Final Staphylococcus Lugdunensis No Anaerobic Organisms 04/23/19 17:59 Knee - Post Surgical Site Gram Stain - Final 04/23/19 17:59 Knee - Post Surgical Site Wound Culture - Final Staphylococcus Lugdunensis No Anaerobic Organisms Impressions: Guidance Fluoroscopy 04/25/19 00:00 IMPRESSION: SUCCESSFUL PLACEMENT OF A 5 FR DUAL LUMEN 43 CM PICC IN THE LEFT BASILIC VEIN. Interventional Vascular Procedure 04/25/19 00:00 IMPRESSION: SUCCESSFUL PLACEMENT OF A 5 FR DUAL LUMEN 43 CM PICC IN THE LEFT BASILIC VEIN. PICC Line Insertion 04/25/19 00:00 IMPRESSION: SUCCESSFUL PLACEMENT OF A 5 FR DUAL LUMEN 43 CM PICC IN THE LEFT BASILIC VEIN. Assessment & Plan - Diagnosis (1) Surgical site infection Is this a current diagnosis for this admission?: Yes Plan: plan to be discharged home with 6 weeks of IV antibiotic therapy once [facility] - Time Time Spent with patient: 15-24 minutes Anticipated discharge: Home with Homehealth Within: Other
[2019-04-27] MEDS: ASPIRIN 81 MG TABLET, ENT COATED PO SCH (09:34)
[2019-04-27] MEDS: HYDROCHLOROTHIAZIDE 25 MG TABLET PO SCH (09:34)
[2019-04-27] MEDS: SENNOSIDES/DOCUSATE 8.6-50 MG 1 EACH TABLET PO SCH ×2 (09:34→17:31)
[2019-04-27] MEDS: BUPROPION HCL 75 MG TABLET PO SCH ×2 (09:34→17:31)
[2019-04-27] MEDS: PRENATAL VITAMIN W DHA CAPSULE PO SCH (09:34)
[2019-04-27] MEDS: CETIRIZINE 10 MG TABLET PO SCH (09:34)
[2019-04-27] MEDS: NORMAL SALINE 10 ML SDV (SCHEDULED) IV SCH (09:35)
[2019-04-27] MEDS: CEFTRIAXONE 2 GM/D5W RTU 2 GM/50 ML RTUPB IV SCH (12:05)
[2019-04-28] MEDS: NORMAL SALINE 10 ML SDV (SCHEDULED) IV SCH ×3 (03:39→21:20)
[2019-04-28] MEDS: PANTOPRAZOLE SODIUM 40 MG TABLET.DR PO SCH (06:30)
[2019-04-28] MEDS: LEVOTHYROXINE SODIUM 0.025 MG TABLET PO SCH (06:30)
[2019-04-28] MEDS: LEVOTHYROXINE SODIUM 0.1 MG TABLET PO SCH (06:30)
--- NOTE | 2019-04-28 08:18 | PDOC PROGRESS REPORT ---
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 Antibiotics have been tailored with the discontinuation of vancomycin and continuation of Rocephin. Awaiting discharge planning in cooperation with the [facility]. Physical Exam Vital Signs: Temp Pulse Resp BP Pulse Ox 36.4 C 68 17 155/68 H 96 04/27/19 23:40 04/27/19 23:40 04/27/19 23:40 04/27/19 23:40 04/27/19 23:40 Intake & Output 04/27/19 04/28/19 04/29/19 06:59 06:59 06:59 Intake Total 1754 1608 Balance 1754 1608 Weight 109.4 kg 108.4 kg General appearance: PRESENT: mild distress Respiratory exam: PRESENT: unlabored Cardiovascular exam: PRESENT: RRR Results Laboratory Results: 04/26/19 06:30 04/25/19 05:53 Impressions: Guidance Fluoroscopy 04/25/19 00:00 IMPRESSION: SUCCESSFUL PLACEMENT OF A 5 FR DUAL LUMEN 43 CM PICC IN THE LEFT BASILIC VEIN. Interventional Vascular Procedure 04/25/19 00:00 IMPRESSION: SUCCESSFUL PLACEMENT OF A 5 FR DUAL LUMEN 43 CM PICC IN THE LEFT BASILIC VEIN. PICC Line Insertion 04/25/19 00:00 IMPRESSION: SUCCESSFUL PLACEMENT OF A 5 FR DUAL LUMEN 43 CM PICC IN THE LEFT BASILIC VEIN. Status: Imported from PACS Assessment & Plan - Diagnosis (1) Surgical site infection Is this a current diagnosis for this admission?: Yes Plan: Discharge home on 6 weeks of IV Rocephin therapy when [facility] support has been garnered - Time Time Spent with patient: 15-24 minutes Anticipated discharge: Home with Homehealth Within: Other
[2019-04-28] MEDS: OXYCODONE HCL IR 5 MG TABLET PO PRN ×2 (08:57→17:48)
[2019-04-28] MEDS: BUPROPION HCL 75 MG TABLET PO SCH ×2 (09:07→17:46)
[2019-04-28] MEDS: CETIRIZINE 10 MG TABLET PO SCH (09:08)
[2019-04-28] MEDS: PRENATAL VITAMIN W DHA CAPSULE PO SCH (09:08)
[2019-04-28] MEDS: HYDROCHLOROTHIAZIDE 25 MG TABLET PO SCH (09:08)
[2019-04-28] MEDS: SENNOSIDES/DOCUSATE 8.6-50 MG 1 EACH TABLET PO SCH ×2 (09:08→17:46)
[2019-04-28] MEDS: ASPIRIN 81 MG TABLET, ENT COATED PO SCH (09:09)
[2019-04-28] MEDS: NORMAL SALINE 10 ML SDV (AFTER EACH USE) IV PRN ×2 (09:09→13:34)
[2019-04-28] MEDS: CEFTRIAXONE 2 GM/D5W RTU 2 GM/50 ML RTUPB IV SCH (12:21)
[2019-04-29] MEDS: LEVOTHYROXINE SODIUM 0.1 MG TABLET PO SCH (05:45)
[2019-04-29] MEDS: PANTOPRAZOLE SODIUM 40 MG TABLET.DR PO SCH (05:45)
[2019-04-29] MEDS: LEVOTHYROXINE SODIUM 0.025 MG TABLET PO SCH (05:45)
--- NOTE | 2019-04-29 07:53 | PDOC PROGRESS REPORT ---
Subjective Progress Note for:: 04/29/19 Reason For Visit: RIGHT KNEE PERIPROSTHETIC SURGICAL SITE INFECTION Awaiting home health services to be arranged last approved by the [facility] system. Physical Exam Vital Signs: Temp Pulse Resp BP Pulse Ox 36.7 C 63 16 129/58 H 99 04/28/19 23:04 04/28/19 23:04 04/28/19 23:04 04/28/19 23:04 04/28/19 23:04 Intake & Output 04/28/19 04/29/19 04/30/19 06:59 06:59 06:59 Intake Total 1608 1208 Balance 1608 1208 Weight 108.4 kg 106.6 kg Physical Exam: Unchanged Results Laboratory Results: 04/26/19 06:30 04/25/19 05:53 Impressions: Guidance Fluoroscopy 04/25/19 00:00 IMPRESSION: SUCCESSFUL PLACEMENT OF A 5 FR DUAL LUMEN 43 CM PICC IN THE LEFT BASILIC VEIN. Interventional Vascular Procedure 04/25/19 00:00 IMPRESSION: SUCCESSFUL PLACEMENT OF A 5 FR DUAL LUMEN 43 CM PICC IN THE LEFT BASILIC VEIN. PICC Line Insertion 04/25/19 00:00 IMPRESSION: SUCCESSFUL PLACEMENT OF A 5 FR DUAL LUMEN 43 CM PICC IN THE LEFT BASILIC VEIN. Status: Imported from PACS Assessment & Plan - Diagnosis (1) Surgical site infection Is this a current diagnosis for this admission?: Yes Plan: Awaiting home health services approval by the [facility] system - Time Time Spent with patient: 15-24 minutes Anticipated discharge: Home with Homehealth Within: Other
[2019-04-29] MEDS: OXYCODONE HCL IR 5 MG TABLET PO PRN ×3 (08:46→23:49)
[2019-04-29] MEDS: ASPIRIN 81 MG TABLET, ENT COATED PO SCH (09:24)
[2019-04-29] MEDS: HYDROCHLOROTHIAZIDE 25 MG TABLET PO SCH (09:24)
[2019-04-29] MEDS: SENNOSIDES/DOCUSATE 8.6-50 MG 1 EACH TABLET PO SCH ×2 (09:24→17:43)
[2019-04-29] MEDS: CETIRIZINE 10 MG TABLET PO SCH (09:24)
[2019-04-29] MEDS: NORMAL SALINE 10 ML SDV (AFTER EACH USE) IV PRN ×2 (09:25→13:28)
[2019-04-29] MEDS: PRENATAL VITAMIN W DHA CAPSULE PO SCH (09:25)
[2019-04-29] MEDS: NORMAL SALINE 10 ML SDV (SCHEDULED) IV SCH ×2 (09:25→21:09)
[2019-04-29] MEDS: BUPROPION HCL 75 MG TABLET PO SCH ×2 (09:28→17:43)
[2019-04-29] MEDS: CEFTRIAXONE 2 GM/D5W RTU 2 GM/50 ML RTUPB IV SCH (12:17)
[2019-04-30] MEDS: LEVOTHYROXINE SODIUM 0.1 MG TABLET PO SCH (05:22)
[2019-04-30] MEDS: LEVOTHYROXINE SODIUM 0.025 MG TABLET PO SCH (05:22)
[2019-04-30] MEDS: PANTOPRAZOLE SODIUM 40 MG TABLET.DR PO SCH (05:22)
[2019-04-30] MEDS: ASPIRIN 81 MG TABLET, ENT COATED PO SCH (09:33)
[2019-04-30] MEDS: PRENATAL VITAMIN W DHA CAPSULE PO SCH (09:33)
[2019-04-30] MEDS: HYDROCHLOROTHIAZIDE 25 MG TABLET PO SCH (09:33)
[2019-04-30] MEDS: BUPROPION HCL 75 MG TABLET PO SCH ×2 (09:33→17:18)
[2019-04-30] MEDS: SENNOSIDES/DOCUSATE 8.6-50 MG 1 EACH TABLET PO SCH ×2 (09:33→17:18)
[2019-04-30] MEDS: CETIRIZINE 10 MG TABLET PO SCH (09:33)
[2019-04-30] MEDS: NORMAL SALINE 10 ML SDV (SCHEDULED) IV SCH ×2 (09:34→21:28)
[2019-04-30] MEDS: NORMAL SALINE 10 ML SDV (AFTER EACH USE) IV PRN ×2 (09:34→14:47)
[2019-04-30] MEDS: OXYCODONE HCL IR 5 MG TABLET PO PRN ×2 (09:48→23:53)
[2019-04-30] MEDS: CEFTRIAXONE 2 GM/D5W RTU 2 GM/50 ML RTUPB IV SCH (11:35)
[2019-05-01] MEDS: LEVOTHYROXINE SODIUM 0.1 MG TABLET PO SCH (05:12)
[2019-05-01] MEDS: LEVOTHYROXINE SODIUM 0.025 MG TABLET PO SCH (05:12)
[2019-05-01] MEDS: PANTOPRAZOLE SODIUM 40 MG TABLET.DR PO SCH (05:13)
[2019-05-01] MEDS: OXYCODONE HCL IR 5 MG TABLET PO PRN (08:05)
[2019-05-01] MEDS: CETIRIZINE 10 MG TABLET PO SCH (09:40)
[2019-05-01] MEDS: ASPIRIN 81 MG TABLET, ENT COATED PO SCH (09:40)
[2019-05-01] MEDS: BUPROPION HCL 75 MG TABLET PO SCH (09:40)
[2019-05-01] MEDS: HYDROCHLOROTHIAZIDE 25 MG TABLET PO SCH (09:40)
[2019-05-01] MEDS: PRENATAL VITAMIN W DHA CAPSULE PO SCH (09:40)
[2019-05-01] MEDS: NORMAL SALINE 10 ML SDV (SCHEDULED) IV SCH (09:40)
[2019-05-01] MEDS: SENNOSIDES/DOCUSATE 8.6-50 MG 1 EACH TABLET PO SCH (09:40)
[2019-05-01] MEDS: CEFTRIAXONE 2 GM/D5W RTU 2 GM/50 ML RTUPB IV SCH (11:04)
[2019-05-01] MEDS: NORMAL SALINE 10 ML SDV (AFTER EACH USE) IV PRN (12:41)
[2019-05-01 12:47] VITALS: BP 133/62
== END 2019-05-01 15:18 | disposition home health service (06) | DRG 487 ==
LOC: 4W 00:07 → 4S 04-26 17:14
PROVIDERS: ADMIT Orthopaedic Surgery; ATTEND Orthopaedic Surgery
PROC: 0SUV09Z Supplement Right Knee Joint, Tibial Surface with Liner, Open Approach (ICD-10-PCS; 2019-04-23)
PROC: 0SPC09Z Removal of Liner from Right Knee Joint, Open Approach (ICD-10-PCS; principal; 2019-04-23 15:00)
PROC: B548ZZA Ultrasonography of Superior Vena Cava, Guidance (ICD-10-PCS; 2019-04-25)
PROC: B518ZZA Fluoroscopy of Superior Vena Cava, Guidance (ICD-10-PCS; 2019-04-25)
PROC: 02HV33Z Insertion of Infusion Device into Superior Vena Cava, Percutaneous Approach (ICD-10-PCS; 2019-04-25)
DX: T84.53XA Infection and inflammatory reaction due to internal right knee prosthesis, initial encounter (principal); I10 Essential (primary) hypertension; Y83.1 Surgical operation with implant of artificial internal device as the cause of abnormal reaction of the patient, or of later complication, without mention of misadventure at the time of the procedure; B95.61 Methicillin susceptible Staphylococcus aureus infection as the cause of diseases classified elsewhere; B96.89 Other specified bacterial agents as the cause of diseases classified elsewhere; F17.200 Nicotine dependence, unspecified, uncomplicated; E05.90 Thyrotoxicosis, unspecified without thyrotoxic crisis or storm; K21.9 Gastro-esophageal reflux disease without esophagitis; I25.2 Old myocardial infarction; Z90.49 Acquired absence of other specified parts of digestive tract; Z71.6 Tobacco abuse counseling
CPT/HCPCS: 01320; 36415; 36573; 76937; 77001; 80048; 80202; 82565; 85025; 85027; 85610; 85652; 85730; 86140; 87070; 87075; 87077; 87186; 87205; 94799; C9290; J0696; J1100; J1642; J1741; J2250; J2405; J2704; J3010; J3370; J3490; J7050; J7060; J7120